=== PATIENT | female | born 1935 | race Caucasian/White ===

== ENCOUNTER 2017-01-19 10:07 | Observation (INO) | payer MEDICARE, BC ==
[2017-01-19 10:41] LABS: #Eosinphils 0.1 thou/uL (0.0-0.7); #Lymphocytes 0.8 thou/uL (1.20-3.40); #Monocytes 0.3 thou/uL (0.11-0.59); #Neutrophils 3.7 thou/uL (1.40-6.50); %Basophils 0.8 % (0.0-1.0); %Eosinophils 2.4 % (0.0-10.0); %Lymphocytes 16.2 % (21.0-51.0); %Monocytes 6.8 % (0.0-10.0); Hematocrit 31.3 % (36.0-47.0); Mean Platelet Volume 7.2 fL (7.4-10.4); Red Blood Cell (RBC) Count 3.53 mill/uL (4.20-5.40)
[2017-01-19] MEDS ORDERED: Mag-Al 1200 mg/1200 mg/30 ML UDCUP ONE (10:51)
[2017-01-19] MEDS ORDERED: Lidocaine Viscous Sol 2% 15 ml UD Cup ONE (10:51)
[2017-01-19 11:06] LABS: ALT (SGPT) 14 U/L (8-55); AST (SGOT) 21 U/L (5-34); Alkaline Phosphatase 50 U/L (40-150); Anion Gap 14 mmol/L (10-20); BUN (Urea Nitrogen) 48 mg/dL (9.8-20.1); Bilirubin, Total 0.4 mg/dL (0.2-1.2); CK (CPK) 97 U/L (29-168); Calc. Creatinine Clearance 0 mL/min (70-130); Calcium 9.7 mg/dL (7.8-10.44); Carbon Dioxide 24 mmol/L (23-31); Chloride 104 mmol/L (98-107); Estimated GFR-MDRD 32; Globulin 2.7 g/dL (2.4-3.5); Lipase 38 U/L (8-78); Protein, Total 6.5 g/dL (6.0-8.3)
[2017-01-19 11:11] LABS: Troponin I Less than 0.010 ng/mL (< 0.028)
--- NOTE | 2017-01-19 12:26 | HP ---
PRIMARY CARE PHYSICIAN: Miky Rodriguez M.D. REASON FOR ADMISSION: Chest pain. HISTORY OF PRESENT ILLNESS: An 82-year-old female with a history of hypertension, dyslipidemia, hyp othyroidism, who came to emergency room for evaluation of chest pain. Patient reports that this mor kalpana around 7:30, she was having substernal chest pain which was pressure-like sensation. She was f eeling as if not in her chest. She was experiencing mild shortness of breath. She denied any assoc iated nausea, vomiting, diaphoresis. She denies any radiation of pain. When it starts, her intensi ty of pain was about 6/10 and after emergency room treatment, the patient's intensity of pain reduce d to 2/10. She denies any vomiting. She denies any unusual food ingestion. She denies any relatio n of chest pain with food, respiration or activity. She denies any fever or chills. She denies any associated cough, hemoptysis. She denies any lower extremity edema or calf tenderness. Patient's pain was gradually getting worse at home and that is why she was scared and called 911 and paramedics brought her to the emergency room for evaluation. When she came to Emergency Room, she had routine blood tests including cardiogram which was showing normal sinus rhythm with nonspecific ST-T changes. Her routine blood test was also unremarkable inc luding cardiac enzymes. At this point, we are admitting this patient in hospital for rule out acute coronary syndrome. REVIEW OF SYSTEMS: The following complete review of systems was negative, unless otherwise mentione d in the HPI or below: Constitutional: Weight loss or gain, ability to conduct usual activities. Skin: Rash, itching. Eyes: Double vision, pain. ENT/Mouth: Nose bleeding, neck stiffness, pain, tenderness. Cardiovascular: Palpitations, dyspnea on exertion, orthopnea. Respiratory: Shortness of breath, wheezing, cough, hemoptysis, fever or night sweats. Gastrointestinal: Poor appetite, abdominal pain, heartburn, nausea, vomiting, constipation, or diar juan. Genitourinary: Urgency, frequency, dysuria, nocturia. Musculoskeletal: Pain, swelling. Neurologic/Psychiatric: Anxiety, depression. Allergy/Immunologic: Skin rash, bleeding tendency. Please see my HPI for pertinent positive and negative. All other review of systems reviewed and neg ative except as mentioned in the HPI. PAST MEDICAL HISTORY: History of breast cancer, hypertension, dyslipidemia, hypothyroidism, chronic kidney disease stage 3, and gastroesophageal reflux disease. PAST SURGICAL HISTORY: Left breast mastectomy. PAST PSYCHIATRIC HISTORY: Anxiety and depression. SOCIAL HISTORY: Patient lives by herself at home. No history of tobacco, alcohol or illicit drug a buse. She is an ex-smoker and quit smoking more than 10 years ago. FAMILY HISTORY: Patient's mother had coronary artery disease as well as she required CABG, daryn merida runs among several family members. No family history of cancer or stroke. ALLERGIES: AUGMENTIN. CURRENT HOME MEDICATIONS: The patient does not have any medication with her at this point, so unabl e to review, but patient was on following medication and per patient, there is no change happened si nce previous hospitalization, the patient is on following medications: Aspirin 81 mg p.o. daily, Co reg 6.25 mg p.o. b.i.d., vitamin D3 2000 units p.o. daily, Synthroid 100 mcg p.o. daily, Procardia-X L 30 mg p.o. b.i.d., Crestor 20 mg p.o. daily, Zoloft 200 mg p.o. daily, Aldactone 25 mg p.o. daily, coenzyme Q10 one tablet daily, valsartan 80 mg p.o. daily, and vitamin E 1000 units p.o. daily. EMERGENCY ROOM COURSE: Patient is given GI cocktail and nitro patch. PHYSICAL EXAMINATION: VITAL SIGNS: On arrival, blood pressure 110/70, pulse 81, respiratory rate 18, temperature 97.7, sa turation 97% on room air, weight 56.7 kilograms. GENERAL: Patient is currently alert, awake, no obvious acute distress. HEAD: Normocephalic, atraumatic. EYES: Pupils round, reactive to light. Extraocular muscle intact. ENT: Oropharynx within normal limits. Moist mucous membranes. No oral lesions. No pharyngeal ector thema, no exudates. NECK: Supple. Range of motion is normal. No meningeal signs of irritation. LUNGS: Clear to auscultation without any rhonchi or rales. CARDIOVASCULAR: S1, S2 regular without any significant murmur. Chest wall examination, patient wilburn s have mild substernal reproducible pain over the sternum. ABDOMEN: Soft, bowel sounds present, nontender, nondistended. No organomegaly, no mass, no suprapu bic tenderness. BACK: Examination unremarkable, no CVA tenderness. EXTREMITIES: Upper extremity passive movements of all joints are normal. Lower extremity, no edema . No calf tenderness. Good peripheral pulsation. SKIN: No skin rash. HEMATOLOGICAL SYSTEM: No lymphadenopathy. PSYCHIATRIC: Normal affect. NEUROLOGIC: Nonfocal examination. IMAGIN. EKG based on my review reveals normal sinus rhythm, nonspecific ST-T changes. 2. CBC: WBC 5.0, hemoglobin 10.3, and platelets 137. 3. BMP: Sodium 137, potassium 4.7, chloride 104, carbon dioxide 24, anion gap 14, BUN 48, creatini ne 1.55, glucose 105, calcium 9.7. 4. LFT: AST 21, ALT 14, alkaline phosphatase 50, albumin 3.8, lipase 38. CK 97, CK-MB 3.3, tropon in I less than 0.010. ASSESSMENT AND PLAN/IMPRESSION: 1. Acute chest pain. Patient's chest pain description is atypical at this point given substernal l ocation, concerning for gastroesophageal reflux disease. Patient also has some reproducibility over sternal pressure. Her some description is also concerning for coronary artery disease. At this po int, for benefit of doubt, this patient will require observation to telemetry floor. We will do ser ial cardiac enzymes. We will treat her symptoms with Protonix and Maalox while in hospital. We debby l also consider doing Cardiolite stress test for diagnostic reason. Meanwhile, we will continue wit h aspirin 325 mg p.o. daily, nitro patch q.8 hourly. We will check lipid profile for risk stratific ation, we will monitor on telemetry floor. If her cardiac enzymes remain negative, then we will do a stress test tomorrow. If her cardiac enzymes are abnormal, then we will consider Cardiology evalu ation. 2. Hypertension. Currently, blood pressure is well controlled. We will resume patient's home medi cation while in hospital. At this point, the patient did not bring her home medication, so unable t o verify, but once she gives us her home medication list, then we will start her on antihypertensive medication. 3. Hypothyroidism. Similarly, once we verify her dose of Synthroid, then we will start home medica tion while in hospital. 4. Anxiety and depression. We will continue Zoloft as per home dosage. 5. Dyslipidemia. We will check lipid profile tomorrow and after verifying dose of Crestor, we will resume Crestor while in hospital. 6. Chronic kidney disease stage 3. We will monitor renal function. 7. Anemia, normocytic, normochromic. Patient will benefit from multivitamin therapy upon discharge . 8. Deep venous thrombosis prophylaxis not needed because we are expecting discharge in 24 hours. 9. Gastrointestinal prophylaxis, Protonix 40 mg p.o. daily. CODE STATUS: The patient is FULL CODE. Patient does not have any surrogate decision maker. Dispos ition plan based on clinical course, likely within 24 hours. Her chest x-ray was unremarkable.
--- NOTE | 2017-01-19 12:29 | RAD ---
RADIOGRAPH CHEST 1 VIEW: Date: 01/19/17 HISTORY: 82 year old female with chest pain FINDINGS: The thoracic aorta is tortuous and ectatic. There is no evidence of air space density, pneumothorax , or pulmonary edema. The lateral costophrenic angles are sharp. There is a 5 cm density overlappin g the medial aspect of the left cardiac shadow. IMPRESSION: 1. No acute pulmonary findings. 2. Ectasia of thoracic aorta. 3. Left retrocardiac mass, probably a moderate sized hiatal hernia. shayla pulido POS: [facility]
[2017-01-19] MEDS ORDERED: Calcium Carbonate 500 MG ChewTAB PO PRN (13:26)
[2017-01-19] MEDS ORDERED: HYDROcodone/Acetaminophen 5/325 mg Tablet PO PRN (13:26)
[2017-01-19] MEDS ORDERED: Loratadine 10 MG TAB PO PRN (13:26)
[2017-01-19] MEDS ORDERED: Ondansetron ODT 4 MG TAB PO PRN (13:26)
[2017-01-19] MEDS ORDERED: Mag-Al 1200 mg/1200 mg/30 ML UDCUP PO PRN (13:26)
[2017-01-19] MEDS ORDERED: Zolpidem Tartrate 5 MG TAB PO PRN (13:26)
[2017-01-19] MEDS ORDERED: Milk Of Magnesia 30 ML UDCUP PO PRN (13:26)
[2017-01-19] MEDS ORDERED: Ondansetron HCl/PF 4 MG/2 ML Vial IVP PRN (13:26)
[2017-01-19] MEDS ORDERED: Sodium Chloride 0.65% Nasal 44 ML BOT EA NARE PRN (13:26)
[2017-01-19] MEDS ORDERED: Senokot 8.6 MG TAB PO PRN (13:26)
[2017-01-19] MEDS ORDERED: Acetaminophen 325 MG TAB PO PRN (13:26)
[2017-01-19] MEDS ORDERED: Diabetic Tussin 200 MG/10 ML UDCUP PO PRN (13:26)
[2017-01-19] MEDS ORDERED: Loperamide HCl 2 MG CAP PO PRN (13:26)
[2017-01-19] MEDS ORDERED: Nitroglycerin 0.4 MG TAB (25 Tab Bottle) SL PRN (13:26)
[2017-01-19 14:01] VITALS: BMI 21.9
[2017-01-19 14:14] LABS: Troponin I Less than 0.010 ng/mL (< 0.028)
[2017-01-19] MEDS: Nitroglycerin 2% Ointment 1 INCH/1 GM Packet TOP SCH ×2 (15:27→22:07)
[2017-01-19] MEDS ORDERED: clonazePAM 0.5 MG TAB PO PRN (16:15)
[2017-01-19 17:01] LABS: Troponin I 0.013 ng/mL (< 0.028)
[2017-01-19] MEDS: Carvedilol 6.25 MG TAB PO SCH (20:12)
[2017-01-19] MEDS ORDERED: FLUOCINOLONE ACETONIDE OIL L EAR SCH (21:00)
[2017-01-20] MEDS ORDERED: Levothyroxine Sodium 100 MCG TAB PO SCH (06:00)
[2017-01-20] MEDS: Nitroglycerin 2% Ointment 1 INCH/1 GM Packet TOP SCH (06:03)
[2017-01-20] MEDS ORDERED: Spironolactone 25 MG TAB PO SCH (08:00)
[2017-01-20] MEDS ORDERED: NIFEdipine XL 60 MG TAB PO SCH (09:00)
[2017-01-20] MEDS ORDERED: Ubidecarenone 50 MG CAP PO SCH (09:00)
[2017-01-20] MEDS ORDERED: Aspirin 325 MG TAB PO SCH (09:00)
[2017-01-20] MEDS ORDERED: Valsartan 80 MG TAB PO SCH (09:00)
[2017-01-20] MEDS ORDERED: ADENOSINE 60 MG/20 ML VIAL ONE (12:00)
[2017-01-20 12:17] VITALS: BP 187/91; TEMP 98.1
[2017-01-20] MEDS: Carvedilol 6.25 MG TAB PO SCH (12:42)
--- NOTE | 2017-01-20 14:35 | NM ---
NUCLEAR MEDICINE CARDIAC MYOCARDIAL PERFUSION SPECT EJECTION FRACTION STUDY WALL MOTION CINE: HISTORY: 82-year-old female with chest pain, hypertension, dyslipidemia, and family history of coronary arter y disease. TECHNIQUE: Number of days: 1 Rest study: Tc99m sestamibi (Cardiolite) dose: 9.4 mCi Pharmacologic stress: adenosine dose: 73.4 mg Stress study: Tc99m sestamibi (Cardiolite) dose: 29.0 mCi FINDINGS: CARDIAC (MYOCARDIAL PERFUSION) SPECT The evaluation of the inferior wall is limited due to adjacent bowel activity on the stress images. There is no reversible defect elsewhere. EJECTION FRACTION STUDY EF = 53% WALL MOTION CINE Normal. IMPRESSION: 1. Limited evaluation of inferior wall. 2. No evidence of reversible ischemia. DAGOBERTO Nesbitt POS: [facility]
--- NOTE | 2017-01-20 15:05 | DIS ---
DATE OF ADMISSION: 01/19/2017 DATE OF DISCHARGE: 01/20/2017 PRIMARY CARE PHYSICIAN: Dr. Mkiy Rodriguez. DISCHARGE DISPOSITION: Home. PRIMARY DISCHARGE DIAGNOSIS: Chest pain, ruled out acute coronary syndrome. SECONDARY DISCHARGE DIAGNOSES: Anxiety, depression, chronic kidney disease stage 3, dyslipidemia, h ypertension, hypothyroidism. PRIMARY PROCEDURE/OPERATION: None. RADIOLOGICAL INVESTIGATION: Chest x-ray was normal. Stress test came back negative. No reversible ischemia. SIGNIFICANT LABORATORY DATA: WBC 5.0, hemoglobin 10.3, platelets 137. Sodium 137, potassium 4.7, B UN 48, creatinine 1.55, calcium 9.7. LFTs normal. Cardiac enzymes negative x3. Lipase 38, LDL 122 . Cholesterol 143, triglycerides 199 and HDL 48. DISCHARGE MEDICATIONS: The patient will continue all her previous medications: Aspirin 81 mg p.o. daily, Coreg 6.25 mg p.o. b.i.d., vitamin D3 2000 units p.o. daily, [place] 7.5 one or two tablets q.4 hourly p.r.n., Synthroid 100 mcg p.o. daily, Procardia ER 60 mg p.o. b.i.d., Crestor 20 mg p.o. viviane ly, Zoloft 200 mg p.o. daily, Aldactone 25 mg p.o. daily, Coenzyme Q10 200 mg p.o. daily, valsartan 160 mg p.o. daily, vitamin E 1000 units p.o. daily, clonazepam 0.125 mg p.o. t.i.d. CONTRAINDICATIONS: None. CODE STATUS: FULL CODE. INPATIENT CONSULTANTS: None. ALLERGIES: AMOXICILLIN and AUGMENTIN. TEST RESULTS PENDING ON DISCHARGE: None. DISCHARGE PLAN: Post hospital, the patient will follow up with primary care physician in 1 or 2 [facility]. HOSPITAL COURSE: An 82-year-old female who was admitted by me yesterday on 01/19/2017. Patient chito chen to the emergency room with a complaint of chest pain. Please see my H\T\P for further details. T his patient's chest pain description was atypical. She came to the ER and we did routine workup, he r EKG was normal sinus rhythm with nonspecific ST-T changes. Her chest x-ray was normal. We kept t his patient in the hospital and did serial cardiac enzyme that came back negative. We will monitor on telemetry floor and her telemetry remained unremarkable. She was asymptomatic while in hospital for chest pain. For benefit of doubt, we did a pharmacological stress test and that came back negat maria l. This patient is currently hemodynamically stable and asymptomatic. The patient is seen and examined at bedside today. PHYSICAL EXAMINATION: VITAL SIGNS: Currently, temperature 98.1, pulse 73, respiratory rate 16, saturation 97%, blood pres sure 187/91. Weight 132 pounds. GENERAL: The patient is currently alert, awake, no acute distress. HEAD: Normocephalic, atraumatic. LUNGS: Clear to auscultation without any rhonchi or rales. CARDIAC: S1, S2 regular without any murmur. ABDOMEN: Soft and benign. EXTREMITIES: No edema. NEUROLOGIC: Nonfocal examination. The patient is medically stable for discharge and she will resume all her previous medication and sh e will follow up with primary care physician in 1 week. All test results discussed with the patient in detail.
== END 2017-01-20 14:43 | disposition home or self-care (01) ==
LOC: ERS 10:07 → 2SW 12:09
PROVIDERS: ADMIT Internal Medicine; ATTEND Internal Medicine
DX: R07.89 Other chest pain (principal); F32.9 Major depressive disorder, single episode, unspecified; F41.9 Anxiety disorder, unspecified; I12.9 Hypertensive chronic kidney disease with stage 1 through stage 4 chronic kidney disease, or unspecified chronic kidney disease; N18.3 Chronic kidney disease, stage 3 (moderate); E78.5 Hyperlipidemia, unspecified; E03.9 Hypothyroidism, unspecified; K21.9 Gastro-esophageal reflux disease without esophagitis; Z88.0 Allergy status to penicillin; Z88.8 Allergy status to other drugs, medicaments and biological substances; Z79.82 Long term (current) use of aspirin; Z79.899 Other long term (current) drug therapy; Z90.12 Acquired absence of left breast and nipple; Z87.891 Personal history of nicotine dependence; Z82.49 Family history of ischemic heart disease and other diseases of the circulatory system
CPT/HCPCS: 71010; 78452; 80053; 80061; 82550; 82553; 83690; 84484 ×2; 85025; 93005; 93017; 94760; 99285; A9500; G0378; 36415; A4216; J0153

== ENCOUNTER 2017-03-07 12:35 | Outpatient (CLI) | payer MEDICARE, BC ==
--- NOTE | 2017-03-07 15:08 | RAD ---
RIGHT TOES THREE VIEWS: History: Injury. FINDINGS: Post-operative changes are seen at the base of the first metatarsal with screws present at this level , one crossing the base of the first and second metatarsals, a second more obliquely oriented screw t hrough the first metatarsal and middle cuneiform. The bones are demineralized. There is an acute appearing intraarticular fracture involving the proxim al phalanx of the great toe. Fracture line extends into the mid portion of the proximal phalanx as a nondisplaced fracture. Old third metatarsal fracture is noted. IMPRESSION: Nondisplaced intraarticular fracture of the base of the proximal phalanx of the great toe. POS: [facility]
== END 2017-03-07 12:36 | disposition home or self-care (01) ==
LOC: SCSRAD 12:35
PROVIDERS: ATTEND Family Medicine
DX: M79.674 Pain in right toe(s) (principal); S92.414A Nondisplaced fracture of proximal phalanx of right great toe, initial encounter for closed fracture

== ENCOUNTER 2018-04-19 09:01 | Emergency (ER) | payer MEDICARE, BC ==
[2018-04-19 09:30] LABS: #Eosinphils 0.1 thou/uL (0.0-0.7); #Lymphocytes 1.2 thou/uL (1.20-3.40); #Monocytes 0.4 thou/uL (0.11-0.59); #Neutrophils 3.1 thou/uL (1.40-6.50); %Basophils 0.3 % (0.0-1.0); %Eosinophils 2.1 % (0.0-10.0); %Lymphocytes 25.7 % (21.0-51.0); %Neutrophils 63.9 % (42.0-75.0); Hemoglobin 12.5 g/dL (12.0-16.0); Mean Corpuscular Hemoglobin 29.1 pg (27.0-31.0); Mean Corpuscular Volume 85.6 fL (78.0-98.0); Mean Platelet Volume 7.4 fL (7.4-10.4); Platelet Count 152 thou/uL (130-400); RBC Distribution Width 12.7 % (11.5-14.5); Red Blood Cell (RBC) Count 4.31 mill/uL (4.20-5.40); White Blood Cell (WBC) Count 4.8 thou/uL (4.8-10.8)
[2018-04-19 09:42] LABS: ALT (SGPT) 17 U/L (8-55); AST (SGOT) 25 U/L (5-34); Albumin 4.7 g/dL (3.4-4.8); Alkaline Phosphatase 75 U/L (40-150); Anion Gap 17 mmol/L (10-20); BUN (Urea Nitrogen) 52 mg/dL (9.8-20.1); Bilirubin, Total 0.6 mg/dL (0.2-1.2); Calc. Creatinine Clearance 0 mL/min (70-130); Calcium 10.5 mg/dL (7.8-10.44); Carbon Dioxide 24 mmol/L (23-31); Chloride 103 mmol/L (98-107); Estimated GFR-MDRD 34; Globulin 2.8 g/dL (2.4-3.5); Glucose 91 mg/dL (83-110); Potassium 4.5 mmol/L (3.5-5.1); Protein, Total 7.5 g/dL (6.0-8.3); Sodium 139 mmol/L (136-145)
--- NOTE | 2018-04-19 10:25 | RAD ---
SINGLE VIEW OF THE CHEST: COMPARISON: 01/19/2017. HISTORY: Heart racing and chest pain. FINDINGS: Single view of the chest shows a normal sized cardiomediastinal silhouette. There is no evidence of c onsolidation, mass, or pleural effusion. The bones are unremarkable. IMPRESSION: No evidence of acute cardiopulmonary disease. POS: [facility]
[2018-04-19] MEDS ORDERED: Ondansetron PF 4 MG/2 ML Vial ONE (12:02)
[2018-04-19] MEDS ORDERED: Acetaminophen 500 MG TAB ONE (12:02)
--- NOTE | 2018-04-19 12:04 | CT ---
CT BRAIN WITHOUT CONTRAST: Comparison: 02-25-16 History: Woke up this morning with headache. The patient had a headache going to bed last night. Technique: Multiple contiguous axial images were obtained in a CT of the brain without contrast. FINDINGS: There are scattered hypodensities in the subcortical and periventricular white matter, likely seconda ry to small vessel ischemic disease. No large confluent infarcts are seen. There is no evidence of hy drocephalus, intracranial hemorrhage, or extraaxial fluid collections. The calvarium and overlying soft tissues are unremarkable. The visualized paranasal sinuses and masto id air cells are well aerated. IMPRESSION: Small vessel ischemic disease without acute intracranial abnormality. POS: [facility]
[2018-04-19 12:39] LABS: Bilirubin Negative (Negative); Blood, Urine Negative (Negative); Clarity CLEAR (Clear); Glucose, Urine (Dipstick) Negative (Negative); Leukocyte Negative (Negative); Nitrite Negative (Negative); Protein, Urine (Dipstick) Negative (Neg-Trace); Specific Gravity, Urine 1.012 (1.002-1.036); Urobilinogen 0.2 mg/dL (0.2-1.0)
== END 2018-04-19 13:13 | disposition home or self-care (01) ==
LOC: ERS 09:01
DX: I10 Essential (primary) hypertension (principal); E86.0 Dehydration; R51 Headache; E78.5 Hyperlipidemia, unspecified; F41.9 Anxiety disorder, unspecified; F32.9 Major depressive disorder, single episode, unspecified; Z87.891 Personal history of nicotine dependence
CPT/HCPCS: 36415; 70450; 71045; 80053; 81003; 84484; 85025; 93005; 96361; 96374; J2405

== ENCOUNTER 2018-05-08 08:22 | Outpatient (CLI) | payer MEDICARE, BC ==
--- NOTE | 2018-05-08 10:10 | CT ---
CT ABDOMEN AND PELVIS PERFORMED WITH CONTRAST ENHANCEMENT: HISTORY: The patient has a history of weight loss, abdominal pain, a history of left breast cancer, and a prev ious mastectomy. COMPARISON: Exam from 08/04/2016. FINDINGS: ABDOMEN: The lung bases are clear of infiltrates. No pulmonary nodules. A large hiatal hernia is s een. A hypodense lesion within the right lobe of the liver is most compatible with a cyst, stable. The sp mora is normal in appearance. The pancreas region is unremarkable, as is the gallbladder. The right and left adrenal glands are normal in appearance. The right and left kidneys are within no rmal limits in size. There are numerous renal cysts present. The largest cyst is a large lower pole right renal cyst. It measures approximately 10 cm in size, slightly increased since the previous ex amination, when it measured closer to 9 cm. There is no significant periaortic or mesenteric adenopa thy. No bowel wall findings. PELVIS: There is a moderate amount of stool in the rectum region. There is no pelvic lymphadenopath y or mass. The appendix appears to have been removed. Review of the osseous structures show arthritic changes in the spine and scoliosis. IMPRESSION: 1. Bilateral renal cysts with a large lower pole right renal cyst. 2. Hepatic cyst, stable. 3. Large hiatal hernia. POS: [facility]
[2018-05-08] MEDS ORDERED: ISOVUE-370 76%-LOCM 1 ML ONE (11:30)
== END 2018-05-08 08:23 | disposition home or self-care (01) ==
LOC: BICCT 08:22
PROVIDERS: ATTEND Family Medicine
DX: R63.4 Abnormal weight loss (principal); N28.1 Cyst of kidney, acquired; K76.89 Other specified diseases of liver; K44.9 Diaphragmatic hernia without obstruction or gangrene
CPT/HCPCS: 74177

== ENCOUNTER 2018-05-21 13:13 | Outpatient (CLI) | payer MEDICARE, BC ==
--- NOTE | 2018-05-21 15:34 | CT ---
CT BRAIN WITHOUT CONTRAST: HISTORY: Headache. COMPARISON: 04/19/2018 FINDINGS: Changes of chronic small vessel ischemic disease are again seen. The ventricular size is stable, and the basilar cisterns are patent. No evidence of infarct, hemorrhage, midline shift, or abnormal ext raaxial fluid collections is seen. The bony calvarium is intact. The visualized paranasal sinuses a nd mastoid air cells are well aerated. IMPRESSION: Stable examination. No CT evidence of acute intracranial process. POS: [facility]
== END 2018-05-21 13:14 | disposition home or self-care (01) ==
LOC: BICCT 13:13
PROVIDERS: ATTEND Family Medicine
DX: R51 Headache (principal)
CPT/HCPCS: 70450

== ENCOUNTER 2018-09-03 11:27 | Outpatient (CLI) | payer MEDICARE, BC ==
--- NOTE | 2018-09-03 12:01 | RAD ---
XR Chest Pa Lat STANDARD HISTORY: Weight loss COMPARISON: 08/18/2017 FINDINGS: The heart size is normal. The aorta is tortuous The lungs are well expanded without focal a reas of consolidation, pneumothorax or pleural effusions. A hiatal hernia is present. There is scoliosis of the spine IMPRESSION: No radiographic evidence of acute cardiopulmonary process.
== END 2018-09-03 11:28 | disposition home or self-care (01) ==
LOC: BICRAD 11:27
PROVIDERS: ATTEND Family Medicine
DX: R63.4 Abnormal weight loss (principal)
CPT/HCPCS: 36415; 71046; 80053; 82607; 82728; 83540; 83550; 84439; 84443; 84481; 85025; 85652; 86140

== ENCOUNTER 2018-10-01 08:26 | Emergency (ER) | payer MEDICARE, BC ==
[2018-10-01 09:28] LABS: #Eosinphils 0.1 thou/uL (0.0-0.7); #Lymphocytes 1.3 thou/uL (1.20-3.40); #Monocytes 0.4 thou/uL (0.11-0.59); #Neutrophils 3.4 thou/uL (1.40-6.50); %Basophils 0.4 % (0.0-1.0); %Eosinophils 2.2 % (0.0-10.0); %Lymphocytes 24.2 % (21.0-51.0); %Monocytes 8.1 % (0.0-10.0); %Neutrophils 65.1 % (42.0-75.0); Hemoglobin 10.4 g/dL (12.0-16.0); Mean Corpuscular HGB CONC 33.4 g/dL (32.0-36.0); Mean Corpuscular Hemoglobin 28.4 pg (27.0-31.0); Mean Corpuscular Volume 85.1 fL (78.0-98.0); Mean Platelet Volume 7.4 fL (7.4-10.4); Platelet Count 126 thou/uL (130-400); RBC Distribution Width 13.5 % (11.5-14.5); Red Blood Cell (RBC) Count 3.67 mill/uL (4.20-5.40); White Blood Cell (WBC) Count 5.2 thou/uL (4.8-10.8)
[2018-10-01 09:49] LABS: ALT (SGPT) 14 U/L (8-55); AST (SGOT) 20 U/L (5-34); Albumin 4.4 g/dL (3.4-4.8); Alkaline Phosphatase 59 U/L (40-150); Anion Gap 11 mmol/L (10-20); BUN (Urea Nitrogen) 55 mg/dL (9.8-20.1); Bilirubin, Total 0.3 mg/dL (0.2-1.2); Calc. Creatinine Clearance 0 mL/min (70-130); Carbon Dioxide 28 mmol/L (23-31); Chloride 104 mmol/L (98-107); Estimated GFR-MDRD 28; Globulin 2.3 g/dL (2.4-3.5); Potassium 4.4 mmol/L (3.5-5.1); Protein, Total 6.7 g/dL (6.0-8.3); Sodium 139 mmol/L (136-145)
[2018-10-01 09:54] LABS: Glucose 57 mg/dL (83-110)
--- NOTE | 2018-10-01 09:59 | RAD ---
XR Chest 1 View Portable History: Dizziness Comparison: Chest radiograph 2018 Findings: Moderate sliding hiatal hernia. Heart size upper limits of normal. No confluent airspace consolidation, pneumothorax, or effusion. Right axillary vascular calcification s. Old right anterior rib fractures. Impression: Chronic findings. No acute intrathoracic abnormality.
[2018-10-01] MEDS ORDERED: cloNIDine 0.1 MG TAB ONE (10:33)
--- NOTE | 2018-10-05 15:07 | EKG ---
Test Reason : HYPERTENSION Blood Pressure : / mmHG Vent. Rate : 076 BPM Atrial Rate : 076 BPM P-R Int : 196 ms QRS Dur : 092 ms QT Int : 404 ms P-R-T Axes : 073 -06 068 degrees QTc Int : 454 ms Normal sinus rhythm Moderate voltage criteria for LVH, may be normal variant Borderline ECG Confirmed by MEÑO BARKER ([id number]), graphics editor CARLOS CAVAZOS ([id number]) on 10/05/2018 3:07:39 PM Referred By: Confirmed By:MEÑO BARKER
== END 2018-10-01 12:06 | disposition home or self-care (01) ==
LOC: ERS 08:26
DX: I10 Essential (primary) hypertension (principal); E11.649 Type 2 diabetes mellitus with hypoglycemia without coma; F41.9 Anxiety disorder, unspecified; F32.9 Major depressive disorder, single episode, unspecified; E78.5 Hyperlipidemia, unspecified; Z87.891 Personal history of nicotine dependence; Z79.899 Other long term (current) drug therapy; Z79.82 Long term (current) use of aspirin
CPT/HCPCS: 36415; 71045; 80053; 83880; 84484; 85025; 93005

== ENCOUNTER 2018-12-25 22:40 | Observation (INO) | payer MEDICARE, BC ==
--- NOTE | 2018-12-25 23:18 | RAD ---
Chest one view HISTORY: Chest pain. COMPARISON: 10/01/2018. FINDINGS: Cardiac silhouette is magnified by projection. Lungs remain hyperinflated. Mediastinum is m idline with aortic calcified patient. No lobar consolidation or evidence of pneumothorax. Hiatal hernia is again demonstrated. Hemostasis clips over the left axilla. IMPRESSION: Atherosclerosis. Chronic-type findings are stable. No active cardiopulmonary abnormalities are demonstrated.
[2018-12-25 23:42] LABS: #Eosinphils 0.1 thou/uL (0.0-0.7); #Lymphocytes 0.9 thou/uL (1.20-3.40); #Monocytes 0.3 thou/uL (0.11-0.59); #Neutrophils 3.8 thou/uL (1.40-6.50); %Basophils 0.7 % (0.0-1.0); %Eosinophils 2.5 % (0.0-10.0); %Lymphocytes 16.8 % (21.0-51.0); %Monocytes 5.3 % (0.0-10.0); %Neutrophils 74.7 % (42.0-75.0); Hemoglobin 9.3 g/dL (12.0-16.0); Mean Corpuscular HGB CONC 34.1 g/dL (32.0-36.0); Mean Corpuscular Hemoglobin 28.2 pg (27.0-31.0); Mean Corpuscular Volume 82.6 fL (78.0-98.0); Mean Platelet Volume 7.3 fL (7.4-10.4); Platelet Count 115 thou/uL (130-400); Platelet Morphology Comment Appears Decreased; RBC Distribution Width 12.4 % (11.5-14.5); RBC Morphology Normal; Red Blood Cell (RBC) Count 3.32 mill/uL (4.20-5.40); White Blood Cell (WBC) Count 5.1 thou/uL (4.8-10.8)
[2018-12-25 23:43] LABS: ALT (SGPT) 16 U/L (8-55); AST (SGOT) 21 U/L (5-34); Albumin 4.3 g/dL (3.4-4.8); Alkaline Phosphatase 64 U/L (40-150); Anion Gap 14 mmol/L (10-20); BUN (Urea Nitrogen) 41 mg/dL (9.8-20.1); Bilirubin, Total 0.3 mg/dL (0.2-1.2); CK (CPK) 57 U/L (29-168); Calc. Creatinine Clearance 0 mL/min (70-130); Calcium 9.8 mg/dL (7.8-10.44); Carbon Dioxide 24 mmol/L (23-31); Chloride 104 mmol/L (98-107); Estimated GFR-MDRD 37; Globulin 2.2 g/dL (2.4-3.5); Glucose 86 mg/dL (83-110); Potassium 3.7 mmol/L (3.5-5.1); Protein, Total 6.5 g/dL (6.0-8.3); Sodium 138 mmol/L (136-145)
[2018-12-26] MEDS ORDERED: Nitroglycerin 2% Ointment 1 INCH/1 GM Packet ONE (00:26)
[2018-12-26] MEDS ORDERED: Aspirin Chewable 81 MG TAB ONE (00:26)
[2018-12-26] MEDS ORDERED: Morphine 4 MG/ML VIAL ONE (02:49)
[2018-12-26] MEDS ORDERED: Bisacodyl 5 MG TAB PO PRN (07:34)
[2018-12-26] MEDS ORDERED: Ondansetron ODT 4 MG TAB PO PRN (07:34)
[2018-12-26] MEDS ORDERED: Ondansetron PF 4 MG/2 ML Vial IVP PRN (07:34)
[2018-12-26] MEDS ORDERED: Senokot S 8.6-50 MG TAB PO PRN (07:34)
[2018-12-26] MEDS ORDERED: Acetaminophen 325 MG TAB PO PRN (07:34)
[2018-12-26] MEDS ORDERED: HYDROcodone/Acetaminophen 5/325 mg Tablet PO PRN (07:34)
[2018-12-26] MEDS ORDERED: diphenhydrAMINE 25 MG CAP PO PRN (07:37)
[2018-12-26] MEDS ORDERED: hydrALAZINE 20 MG/ML VIAL SLOW IVP PRN ×2 (07:37→10:49)
[2018-12-26] MEDS ORDERED: Docusate 100 MG CAP PO PRN (07:37)
[2018-12-26] MEDS ORDERED: Morphine 2 MG/ML SYRINGE SLOW IVP PRN (07:41)
[2018-12-26 08:27] LABS: Troponin I 0.013 ng/mL (< 0.028)
[2018-12-26] MEDS ORDERED: hydrALAZINE 20 MG/ML VIAL ONE (10:42)
[2018-12-26] MEDS ORDERED: clonazePAM 0.5 MG TAB PO PRN (10:49)
[2018-12-26] MEDS ORDERED: Lorazepam 2 MG/ML VIAL SLOW IVP PRN (12:38)
[2018-12-26] MEDS ORDERED: Lorazepam 2 MG/ML VIAL ONE (12:40)
--- NOTE | 2018-12-26 14:33 | PDOC.HHP ---
Hospitalist HPI - History of Present Illness Chest pain and shortness of breath History of Present Illness: 83 year old female with PMHx of HTN, HLD, anxiety, and COPD presents with worsening chest pain and shortness of breath. Patient developed acute onset of chest pain for the past day. Mid sternal pain that does not radiate. Patient with associated shortness of breath. Patient feels like her heart is racing out her chest currently, while I was in the room with her her rate was in the 80's and regular. Patient denies prior NC, CVA, afib, or PE. Patient with negative stress test greater than 1 year ago. Negative cardiac enzymes on admission, EKG without significant ST-T segment abnormalities suggestive of no STEMI. Patient does seem very anxious and normally takes medications for anxiety. Patient admitted to medical unit with telemetry for further evaluation and treatment. Hospitalist ROS - Review of Systems All other systems reviewed; all pertinent +/- noted in HPI/Subj Hospitalist History - Past Medical History Source: patient Cardiac: reports: HTN, Hyperlipidemia. denies: AFIB, CAD, CHF, NC Pulmonary: reports: COPD, hypertension. denies: CVA/TIA/stroke, congestive heart failure [employer]: denies: Seizure, TIA Gastrointestinal: reports: Constipation. denies: Inflam bowel disease Heme/Onc: denies: Cancer Hepatobiliary: denies: Hep A/B/C Psych: denies: Psychosis, Schizophrenia Infectious Disease: denies: HIV Renal/: denies: Chronic renal failure, UTI Endocrine: denies: Diabetes - Past Surgical History Past Surgical History: reports: Appendectomy - Family History Family History: reports: hyperlipidemia, hypertension - Social History Smoking Status: Former smoker Tobacco Type: cigarettes Alcohol: reports: Occassional Drugs: reports: none Living Situation: Alone Other Social History: Patient states she is a full code - Exam General Appearance: awake alert (Very anxious) Eye: PERRL, anicteric sclera Eye - other findings: EOMI ENT: no oropharyngeal lesions, moist mucosa Neck: supple, symmetric, no lymphadenopathy Heart: no murmur, no gallops, no rubs Heart - other findings: S1 and S2 present Respiratory: CTAB, no wheezes, no rales, no ronchi, tachypneic Gastrointestinal: soft, non-tender, non-distended, no palpable masses, no guarding, no rigidity Skin: no lesions, no rashes Neurological: CN's grossly intact, no focal deficits Musculoskeletal: normal tone, no muscle wasting Psychiatric: normal affect, oriented to person, oriented to place Psychiatric - other findings: Very anxious Hospitalist Results - Labs Result Diagrams: 12/25/18 23:09 12/25/18 23:09 Lab results: WBC 5.1 thou/uL (4.8-10.8) 12/25/18 23:09 Hgb 9.3 g/dL (12.0-16.0) L 12/25/18 23:09 Hct 27.4 % (36.0-47.0) L 12/25/18 23:09 MCV 82.6 fL (78.0-98.0) 12/25/18 23:09 Plt Count 115 thou/uL (130-400) L 12/25/18 23:09 Neutrophils % 74.7 % (42.0-75.0) 12/25/18 23:09 Sodium 138 mmol/L (136-145) 12/25/18 23:09 Potassium 3.7 mmol/L (3.5-5.1) 12/25/18 23:09 Chloride 104 mmol/L (98-107) 12/25/18 23:09 Carbon Dioxide 24 mmol/L (23-31) 12/25/18 23:09 BUN 41 mg/dL (9.8-20.1) H 12/25/18 23:09 Creatinine 1.36 mg/dL (0.6-1.1) H 12/25/18 23:09 Glucose 86 mg/dL (83-110) 12/25/18 23:09 Calcium 9.8 mg/dL (7.8-10.44) 12/25/18 23:09 Total Bilirubin 0.3 mg/dL (0.2-1.2) 12/25/18 23:09 AST 21 U/L (5-34) 12/25/18 23:09 ALT 16 U/L (8-55) 12/25/18 23:09 Alkaline Phosphatase 64 U/L (40-150) 12/25/18 23:09 Creatine Kinase 57 U/L (29-168) 12/25/18 23:09 Troponin I 0.013 ng/mL (< 0.028) 12/26/18 07:36 B-Natriuretic Peptide 130.8 pg/mL (0-100) H 12/25/18 23:09 Serum Total Protein 6.5 g/dL (6.0-8.3) 12/25/18 23:09 Albumin 4.3 g/dL (3.4-4.8) 12/25/18 23:09 - Radiology Interpretation Chest x-ray Status: image reviewed by ok Hospitalist H&P A/P - Problem (1) Chest pain Code(s): R07.9 - CHEST PAIN, UNSPECIFIED Status: Acute (2) Anxiety and depression Code(s): F41.8 - OTHER SPECIFIED ANXIETY DISORDERS Status: Chronic (3) CKD (chronic kidney disease) stage 3, GFR 30-59 ml/min Code(s): N18.3 - CHRONIC KIDNEY DISEASE, STAGE 3 (MODERATE) Status: Chronic (4) Dyslipidemia Code(s): E78.5 - HYPERLIPIDEMIA, UNSPECIFIED Status: Chronic (5) Hypertension Code(s): I10 - ESSENTIAL (PRIMARY) HYPERTENSION Status: Chronic (6) Hypothyroidism Code(s): E03.9 - HYPOTHYROIDISM, UNSPECIFIED Status: Chronic - Plan Plan: Plan: Admit to medical unit with telemetry NM stress test to rule out reversible ischemia Continuous telemetry to monitor for arrhythmia Morphine, oxygen, nitrates, ASA Pending above work up consider cardiology consult Malignant HTN on admission, restart home meds Hydralazine IV PRN SBP >180 Anxiolytics, panic attack is definitely contributing to patients symptoms Replace electrolytes as needed GI and DVT PPX
[2018-12-26] MEDS: Famotidine 20 MG TAB PO SCH ×2 (16:12→20:39)
[2018-12-26] MEDS ORDERED: ADENOSINE 60 MG/20 ML VIAL ONE (17:08)
--- NOTE | 2018-12-26 17:12 | NM ---
CARDIAC SPECT: 12/26/18 HISTORY: 83-year-old female with chest pain, hypertension, and dyslipidemia. TECHNIQUE: A myocardial perfusion scan is performed using the single isotope one day protocol with technetium 99 m-Sestamibi. 9 millicuries injected intravenously for rest followed by 30 millicuries for the stress study. Pharmacologic test with Adenosine was monitored and interpreted by China Lopez NP. FINDINGS: There is a small fixed defect in the inferolateral wall. The left ventricular size is greater on stre ss compared to rest with a TID ratio of 1.39. Gated SPECT LVEF: 36%. Wall motion exam: Global hypokinesis. IMPRESSION: 1. Small inferolateral wall scar. 2. TID ratio is 1.39. Clinical correlation is recommended. POS: [facility]
[2018-12-26] MEDS: NIFEdipine XL 60 MG TAB PO SCH (20:39)
[2018-12-26] MEDS: Carvedilol 3.125 MG TAB PO SCH (20:39)
[2018-12-26] MEDS ORDERED: Rosuvastatin 20 MG TAB PO SCH (21:00)
[2018-12-27] MEDS ORDERED: Levothyroxine Sodium 100 MCG TAB PO SCH (06:00)
[2018-12-27 06:36] LABS: #Eosinphils 0.2 thou/uL (0.0-0.7); #Lymphocytes 0.7 thou/uL (1.20-3.40); #Monocytes 0.4 thou/uL (0.11-0.59); #Neutrophils 3.7 thou/uL (1.40-6.50); %Basophils 0.5 % (0.0-1.0); %Eosinophils 3.3 % (0.0-10.0); %Lymphocytes 14.7 % (21.0-51.0); %Monocytes 7.3 % (0.0-10.0); %Neutrophils 74.2 % (42.0-75.0); Hemoglobin 9.7 g/dL (12.0-16.0); Mean Corpuscular HGB CONC 34.1 g/dL (32.0-36.0); Mean Corpuscular Hemoglobin 28.5 pg (27.0-31.0); Mean Corpuscular Volume 83.5 fL (78.0-98.0); Mean Platelet Volume 7.4 fL (7.4-10.4); Platelet Count 123 thou/uL (130-400); RBC Distribution Width 12.6 % (11.5-14.5); Red Blood Cell (RBC) Count 3.41 mill/uL (4.20-5.40); White Blood Cell (WBC) Count 4.9 thou/uL (4.8-10.8)
[2018-12-27 07:01] LABS: Anion Gap 14 mmol/L (10-20); BUN (Urea Nitrogen) 43 mg/dL (9.8-20.1); Calc. Creatinine Clearance 21 mL/min (70-130); Calcium 9.8 mg/dL (7.8-10.44); Carbon Dioxide 23 mmol/L (23-31); Chloride 106 mmol/L (98-107); Estimated GFR-MDRD 32; Glucose 80 mg/dL (83-110); Potassium 4.4 mmol/L (3.5-5.1); Sodium 139 mmol/L (136-145)
[2018-12-27] MEDS ORDERED: Aspirin Chewable 81 MG TAB PO SCH (09:00)
[2018-12-27] MEDS ORDERED: Spironolactone 25 MG TAB PO SCH (09:00)
[2018-12-27] MEDS ORDERED: Ubidecarenone 50 MG CAP PO SCH (09:00)
[2018-12-27] MEDS ORDERED: Valsartan 80 MG TAB PO SCH (09:00)
[2018-12-27] MEDS: NIFEdipine XL 60 MG TAB PO SCH (10:41)
[2018-12-27] MEDS: Carvedilol 3.125 MG TAB PO SCH (10:42)
--- NOTE | 2018-12-27 11:21 | RAD ---
XR Hip Lt 2-3 View HISTORY: Fall, left hip pain FINDINGS: No fracture or dislocation is identified.
--- NOTE | 2018-12-27 11:22 | RAD ---
XR Hip Rt 2-3 View HISTORY: Fall, right hip pain FINDINGS: No fracture or dislocation is identified.
[2018-12-27 11:33] VITALS: TEMP 98
[2018-12-27 11:38] VITALS: BP 144/70
[2018-12-27 11:41] VITALS: BMI 16.0
[2018-12-27] MEDS ORDERED: Prevnar 13-Val Conj/PF 0.5 ML SYRINGE IM ONE (16:30)
[2018-12-27] MEDS ORDERED: Famotidine 20 MG TAB PO SCH (21:00)
--- NOTE | 2018-12-28 02:05 | DIS ---
DATE OF ADMISSION: 12/26/2018 DATE OF DISCHARGE: 12/27/2018 REASON FOR HOSPITALIZATION: Chest pain. 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 PROCEDURES PERFORMED AND TREATMENTS RENDERED: The patient underwent nuclear medicine stress test, please see full report for details, no reversible ischemia was identified. The patient was restarted on home medications with good improvement of blood pressure. CONDITION ON DISCHARGE: Stable. SPECIFIC INSTRUCTIONS FOR THE PATIENT/FAMILY: 1. The patient is to follow up with primary care physician in the next 5 to 7 days. 2. The patient is recommended to take all medications as outlined, to be re-evaluated by primary care physician. 3. The patient is recommended to keep a blood pressure log with a minimum readings of 3 times per week and take this log to her primary care physician. 4. The patient is recommended to follow up with her primary care physician on ways to avoid panic attack. DISCHARGE MEDICATIONS: Please see discharge medication reconciliation for full details, no new medications were prescribed and the patient states that she has all of her home medications at home. HOSPITAL COURSE: Ms. Morris is a very pleasant 83-year-old white female with past medical history of hypertension, depression, hypothyroidism, hyperlipidemia, and panic attacks who presented to [facility] on 12/26/2018. The patient initially was complaining of chest pain and was admitted to the medical unit with telemetry for close observation. The patient underwent nuclear medicine stress test, please see full report for details, there was no reversible ischemia identified. The patient was restarted on her home blood pressure medications as she was found to have malignant hypertension. With resuming home medications, the patient's blood pressure improved and chest pain resolved. The patient also has a past medical history of anxiety/panic attacks for which she takes short-acting anxiolytic medications. The patient was very anxious and in panic attack on admission and administration of short-acting anxiolytic medications did help control her symptoms. There was concern that the patient may be unstable on her feet and a physical therapy and occupational therapy evaluation was performed, please see full notes from PT and OT for details. The patient recommended safe for discharge home by PT and OT. The patient did also complain to me of some mild hip pain, more severe on the left, bilateral hip x-rays were performed; please see full report for details; no acute bony fracture was identified. With no acute fracture, I recommended the patient that she follow up with her primary care physician for degenerative osteoarthritis and if this continues to be a persistent problem, she may need to see Orthopedic Surgery in the outpatient clinic electively in the upcoming weeks. The patient recommended safe for discharge home. The patient is recommended to take all medications as outlined, to be re-evaluated by primary care physician. The patient recommended to follow up with primary care physician in the next 5 to 7 days. The patient recommended to return to acute care hospital immediately if signs or symptoms return, worsen, or any other new symptoms occur. Greater than 35 minutes spent coordinating care and discharge process for this patient. Job ID: [id number]
--- NOTE | 2019-01-04 14:56 | EKG ---
Test Reason : Blood Pressure : / mmHG Vent. Rate : 086 BPM Atrial Rate : 086 BPM P-R Int : 200 ms QRS Dur : 076 ms QT Int : 406 ms P-R-T Axes : 068 015 090 degrees QTc Int : 485 ms Normal sinus rhythm Possible Left atrial enlargement Nonspecific T wave abnormality Prolonged QT Abnormal ECG Confirmed by KENNY JUAN M.D. ([id number]), pictures editor CARLOS CAVAZOS ([id number]) on 01/04/2019 2:55:58 PM Referred By: Confirmed By:KENNY JUAN M.D.
== END 2018-12-27 15:25 | disposition home or self-care (01) ==
LOC: ERS 22:40 → ERHOLD 12-26 01:09 → 2NO 12-26 01:29
PROVIDERS: ADMIT Hospitalist; ATTEND Hospitalist
DX: R07.9 Chest pain, unspecified (principal); R06.02 Shortness of breath; E03.9 Hypothyroidism, unspecified; I10 Essential (primary) hypertension; E78.5 Hyperlipidemia, unspecified; F41.8 Other specified anxiety disorders; F32.9 Major depressive disorder, single episode, unspecified; F41.0 Panic disorder [episodic paroxysmal anxiety]; Z87.891 Personal history of nicotine dependence; Z88.0 Allergy status to penicillin; Z88.8 Allergy status to other drugs, medicaments and biological substances
CPT/HCPCS: 71045; 73502 ×2; 78452; 80048; 80053; 82550; 83880; 84484 ×3; 85025 ×2; 93005; 93017; 94760; 96374; 96375; 97116; 97139 ×4; 97535; 99285; A9500; G0378 ×3; 36415; J0153; J0360; J2060; J2270

== ENCOUNTER 2019-01-13 08:14 | Emergency (ER) | payer MEDICARE, BC ==
[2019-01-13 08:34] LABS: #Eosinphils 0.2 thou/uL (0.0-0.7); #Lymphocytes 1.2 thou/uL (1.20-3.40); #Monocytes 0.4 thou/uL (0.11-0.59); #Neutrophils 5.1 thou/uL (1.40-6.50); %Basophils 0.5 % (0.0-1.0); %Eosinophils 2.3 % (0.0-10.0); %Lymphocytes 16.9 % (21.0-51.0); %Monocytes 6.4 % (0.0-10.0); Mean Corpuscular Hemoglobin 28.4 pg (27.0-31.0); Mean Corpuscular Volume 81.2 fL (78.0-98.0); Mean Platelet Volume 7.5 fL (7.4-10.4); Platelet Count 138 thou/uL (130-400); RBC Distribution Width 12.8 % (11.5-14.5); Red Blood Cell (RBC) Count 3.51 mill/uL (4.20-5.40); White Blood Cell (WBC) Count 6.9 thou/uL (4.8-10.8)
--- NOTE | 2019-01-13 08:39 | RAD ---
Chest one view HISTORY: Chest pain. COMPARISON: 12/25/2018. FINDINGS: Cardiac silhouette and pulmonary vasculature are unremarkable. Mediastinum is midline with aortic calcification. Lungs remain slightly hyperinflated. Small hiatal hernia. No confluent airspace consolidation or evidence of pneumothorax. Skinfold over the right mid chest. Cardiac monito r leads overlie the chest. IMPRESSION: Atherosclerosis. Chronic-type findings are stable. No active cardiopulmonary abnormalities are demonstrated.
[2019-01-13] MEDS ORDERED: Lorazepam 2 MG/ML VIAL ONE (08:49)
[2019-01-13] MEDS ORDERED: Aspirin Chewable 81 MG TAB ONE (08:50)
[2019-01-13 09:03] LABS: ALT (SGPT) 15 U/L (8-55); AST (SGOT) 19 U/L (5-34); Albumin 4.4 g/dL (3.4-4.8); Alkaline Phosphatase 57 U/L (40-150); Anion Gap 13 mmol/L (10-20); BUN (Urea Nitrogen) 43 mg/dL (9.8-20.1); Bilirubin, Total 0.3 mg/dL (0.2-1.2); CK (CPK) 44 U/L (29-168); Calc. Creatinine Clearance 0 mL/min (70-130); Calcium 10.2 mg/dL (7.8-10.44); Carbon Dioxide 27 mmol/L (23-31); Chloride 106 mmol/L (98-107); Estimated GFR-MDRD 32; Globulin 2.6 g/dL (2.4-3.5); Glucose 97 mg/dL (83-110); Lipase 60 U/L (8-78); Potassium 4.2 mmol/L (3.5-5.1); Sodium 142 mmol/L (136-145)
== END 2019-01-13 09:21 | disposition home or self-care (01) ==
LOC: ERS 08:14
DX: I20.8 Other forms of angina pectoris (principal); F41.9 Anxiety disorder, unspecified; F03.90 Unspecified dementia, unspecified severity, without behavioral disturbance, psychotic disturbance, mood disturbance, and anxiety; F32.9 Major depressive disorder, single episode, unspecified; Z87.891 Personal history of nicotine dependence; Z79.899 Other long term (current) drug therapy; Z79.82 Long term (current) use of aspirin
CPT/HCPCS: 36415; 71045; 80053; 82550; 83690; 83880; 84484; 85025; 93005; 96374; J2060

== ENCOUNTER 2019-02-02 16:54 | Observation (INO) | payer MEDICARE, BC ==
[2019-02-02 17:35] LABS: #Eosinphils 0.1 thou/uL (0.0-0.7); #Lymphocytes 0.7 thou/uL (1.20-3.40); #Monocytes 0.3 thou/uL (0.11-0.59); #Neutrophils 3.3 thou/uL (1.40-6.50); %Eosinophils 2.6 % (0.0-10.0); %Lymphocytes 16.2 % (21.0-51.0); %Monocytes 6.7 % (0.0-10.0); %Neutrophils 74.4 % (42.0-75.0); Hemoglobin 9.4 g/dL (12.0-16.0); Mean Corpuscular HGB CONC 34.4 g/dL (32.0-36.0); Mean Corpuscular Hemoglobin 27.9 pg (27.0-31.0); Mean Corpuscular Volume 81.2 fL (78.0-98.0); Mean Platelet Volume 7.2 fL (7.4-10.4); Platelet Count 130 thou/uL (130-400); RBC Distribution Width 13.4 % (11.5-14.5); Red Blood Cell (RBC) Count 3.35 mill/uL (4.20-5.40); White Blood Cell (WBC) Count 4.4 thou/uL (4.8-10.8)
[2019-02-02 17:56] LABS: ALT (SGPT) 16 U/L (8-55); AST (SGOT) 19 U/L (5-34); Albumin 4.1 g/dL (3.4-4.8); Alkaline Phosphatase 56 U/L (40-110); Anion Gap 12 mmol/L (10-20); BUN (Urea Nitrogen) 46 mg/dL (9.8-20.1); Bilirubin, Total 0.3 mg/dL (0.2-1.2); Calc. Creatinine Clearance 0 mL/min (70-130); Calcium 9.5 mg/dL (7.8-10.44); Carbon Dioxide 26 mmol/L (23-31); Chloride 105 mmol/L (98-107); Estimated GFR-MDRD 39; Globulin 2.5 g/dL (2.4-3.5); Glucose 96 mg/dL (83-110); Potassium 4.1 mmol/L (3.5-5.1); Protein, Total 6.6 g/dL (6.0-8.3); Sodium 139 mmol/L (136-145)
--- NOTE | 2019-02-02 18:11 | RAD ---
EXAM: Chest one view: HISTORY: Chest tightness, chest pain COMPARISON: 01/13/2019 FINDINGS: Stable hiatal hernia. Stable atherosclerotic ectatic changes of the aorta and scattered chronic lung changes. Heart size: Within normal limits. Lungs: Clear of acute process. No evidence for pneumonia, pleural effusion, acute edema, or pneumothorax, or other significant acute process. IMPRESSION: No significant acute intrathoracic disease. Stable exam.
[2019-02-02] MEDS ORDERED: Nitroglycerin 2% Ointment 1 INCH/1 GM Packet ONE (18:13)
[2019-02-02] MEDS ORDERED: Nitroglycerin 0.4 MG TAB 1 EACH ONE (18:13)
[2019-02-02] MEDS ORDERED: Aspirin Chewable 81 MG TAB ONE (18:39)
--- NOTE | 2019-02-02 20:45 | HP ---
CHIEF COMPLAINT: Chest tightness and palpitations. HISTORY OF PRESENT ILLNESS: Ms. Morris is an 84-year-old female, with past medical history of hypertension, hyperlipidemia, breast cancer, among others, presents to the emergency room with chest tightness and palpitations. The patient was reading the paper when symptoms started. Dixie shaky and chest felt very tight. Currently, the patient is feeling okay. The patient has had a cardiac stress test few years ago which was unremarkable. Initial workup in the emergency room including initial troponin and EKG, no acute findings. Given the patient's presentation and risk factors, the patient is being admitted to the hospital for further management. PAST MEDICAL HISTORY: 1. Hypertension. 2. Hyperlipidemia. 3. Breast cancer. 4. Anxiety/depression. PAST SURGICAL HISTORY: Left breast mastectomy. FAMILY HISTORY: Reviewed and noncontributory. SOCIAL HISTORY: She is a former tobacco and cigarette smoker, no history of drug use, she drinks alcohol socially. FAMILY HISTORY: Reviewed and noncontributory. HOME MEDICATIONS: Please see home medication reconciliation form for updated medications. ALLERGIES: THE PATIENT IS ALLERGIC TO AMOXICILLIN, ATORVASTATIN, AUGMENTIN, ZOPICLONE, LIPITOR, POTASSIUM CLAVULANATE WHICH IS UNCONFIRMED, SIMVASTATIN. REVIEW OF SYSTEMS: Review of 14 systems is negative except what is mentioned in History of Present Illness. PHYSICAL EXAMINATION: GENERAL: The patient is awake, alert. She is hard of hearing. HEAD AND NECK: Normocephalic, atraumatic. NECK: Supple. No JVD. CHEST: Fair, bilateral air entry. HEART: S1, S2. Regular. ABDOMEN: Soft, nontender. Bowel sounds present. NEURO: The patient is hard of hearing. Otherwise, awake, alert, oriented x3. No focal findings. PSYCH: Normal mood. EXTREMITIES: No clubbing or cyanosis. LABORATORY DATA: Chest x-ray, no acute findings. Troponin less than 0.01. BUN is 46, creatinine 1.3. Otherwise electrolytes unremarkable. WBC count is 4.4, hemoglobin is 9.4, MCV is 81, platelets 130. EKG as mentioned above in History of Present Illness. ASSESSMENT: 1. Acute chest pain. 2. Palpitations. 3. Hypertension. 4. Hyperlipidemia. 5. History of breast cancer. PLAN: 1. Admit. 2. Aspirin. 3. Telemetry monitoring. 4. Serial cardiac enzymes. 5. 2D echo. 6. Consult Cardiology in a.m. for evaluation and further recommendations. 7. Reconcile home medications. 8. DVT prophylaxis, SCD. 9. Expected length of stay 1 midnight if the patient is stable and further workup negative. Job ID: [id number]
[2019-02-02 21:05] LABS: Troponin I 0.023 ng/mL (< 0.028)
[2019-02-02] MEDS ORDERED: Morphine 2 MG/ML SYRINGE ONE ×2 (21:21→21:23)
[2019-02-02 22:57] VITALS: BMI 17.6
[2019-02-02] MEDS ORDERED: Nitroglycerin 2% Ointment 1 INCH/1 GM Packet TOP SCH (23:00)
[2019-02-02] MEDS ORDERED: cloNIDine 0.1 MG TAB PO PRN (23:24)
[2019-02-02] MEDS ORDERED: NIFEdipine XL 60 MG TAB PO SCH (23:30)
[2019-02-02] MEDS ORDERED: Acetaminophen 325 MG TAB PO PRN (23:47)
[2019-02-02 23:55] LABS: Troponin I Less than 0.010 ng/mL (< 0.028)
[2019-02-03] MEDS ORDERED: clonazePAM 0.5 MG TAB PO SCH (03:00)
[2019-02-03] MEDS: Aspirin 325 mg Enteric Coated Tablet PO SCH ×2 (08:54→09:31)
[2019-02-03] MEDS: NIFEdipine XL 60 MG TAB PO SCH ×3 (08:55→20:18)
[2019-02-03] MEDS ORDERED: FLU VACC TS2019-20(65YR UP)/PF 180 MCG/0.5 ML SYRINGE IM ONE (09:00)
[2019-02-03] MEDS ORDERED: Prevnar 13-Val Conj/PF 0.5 ML SYRINGE IM ONE (09:00)
--- NOTE | 2019-02-03 14:10 | CON ---
DATE OF CONSULTATION: 02/03/2019 REASON FOR CONSULTATION: Palpitations, possibly some chest pressure. The patient does not recall now. She has dementia. HISTORY OF PRESENT ILLNESS: Ms. Morris is an 84-year-old woman. She came to the hospital yesterday apparently complaining of some palpitations and chest discomfort. She does not remember that now. She does live at home by herself. She is able to tell me her name and that she is at the hospital and eventually she was able to tell me [facility], but does not know what year it is. She does know it is in the fall. The patient does state she feels anxious now. Otherwise, the patient has been apparently in fair condition. MEDICATIONS: At home, 1. Nifedipine 60 mg twice a day. 2. Clonazepam. 3. Aricept. 4. Levothyroxine. ALLERGIES: AMOXICILLIN AND ATORVASTATIN. SOCIAL HISTORY: As mentioned, she lives alone. She does have some family support. REVIEW OF SYSTEMS: Not really reliable due to the dementia. PHYSICAL EXAMINATION: GENERAL: This is a pleasant elderly woman. VITAL SIGNS: She is 84 years of age. She is 5 feet 4 inches, 103 pounds, blood pressure earlier 174/90, and pulse is 100 and sinus. HEENT: Eyes, sclerae and nonicteric. LUNGS: Clear. CARDIAC: Normal S1 and normal S2. There is no murmur, rub, or gallop. ABDOMEN: Soft and nontender. EXTREMITIES: Warm, dry. No clubbing. No cyanosis. No edema. LABORATORY DATA: EKG did not show any acute changes. Hemoglobin is 9.4, platelet count 130. The sodium is 139, potassium is 4.7, recent iron level was 110 with a ferritin level of 27 back in the spring. The patient was scheduled for an echocardiogram. The prosthetic technician came in the room and tried to do the procedure, explained the procedure to her, but she declined having the echo. She said now she is agreeable to having it done. ASSESSMENT: 1. Palpitations. 2. Dementia. 3. Hypertension. 4. Anemia, probably iron deficiency. PLAN: 1. She has now agreed to the echo, we will try that again. 2. I do not think it is reasonable to proceed to invasive testing or therapy due to the confusion and disorientation. She would be not a candidate for surgery, also poor candidate for percutaneous therapy as if she gets confused at home and does not take anti-platelet drugs that can be disastrous. Conservative medical therapy seems most appropriate. Family is in the room and agrees with that. 3. We will check ferritin level; if it is low, consider intravenous iron. Job ID: [id number]
[2019-02-03] MEDS: Lorazepam 1 MG TAB PO PRN (18:04)
[2019-02-03 18:24] LABS: Bacteria/HPF None Seen HPF (None Seen); Bilirubin Negative (Negative); Blood, Urine Negative (Negative); Clarity Clear (Clear); Glucose, Urine (Dipstick) Normal (Negative); Leukocyte Negative Leu/uL (Negative); Nitrite Negative (Negative); Protein, Urine (Dipstick) Negative (Neg-Trace); RBC/HPF 0-3 HPF (0-3); Squamous Epithelial 0-3 HPF (0-3); Urine Culture Reflex No No; Urobilinogen Normal mg/dL (Less than 2); WBC/HPF 0-3 HPF (0-3)
--- NOTE | 2019-02-03 19:24 | PDOC.HOSPP ---
- Subjective Encounter Date: 02/03/19 Encounter Time: 16:00 Subjective: f/u for CP, palpitations with initial work up unrevealing. - Objective Vital Signs & Weight: Vital Signs (12 hours) Temp Pulse Pulse Pulse Resp BP BP 02/03/19 15:25 98.3 F 89 18 02/03/19 14:02 96 104 H 139/68 164/76 H 02/03/19 12:10 99 02/03/19 09:30 99 02/03/19 08:50 97.6 F 99 16 BP Pulse Ox 02/03/19 15:25 166/79 H 98 02/03/19 14:02 02/03/19 12:10 148/70 H 02/03/19 09:30 02/03/19 08:50 141/75 H 96 Weight Admit Weight 103 lb 1.6 oz Weight 103 lb 1.6 oz I&O: 02/02/19 02/03/19 02/04/19 06:59 06:59 06:59 Intake Total 950 Balance 950 Result Diagrams: 02/02/19 17:28 02/02/19 17:28 Additional Labs: Laboratory Tests 02/02/19 02/02/19 02/02/19 17:28 20:33 23:24 Ferritin Troponin I Less than 0.010 0.023 Less than 0.010 02/03/19 13:31 Ferritin 51.28 Troponin I EKG Reviewed by me: Yes (Tele - SR) Hospitalist ROS - Medication Medications: Active Medications Generic Name Dose Route Start Last Admin Trade Name Freq PRN Reason Stop Dose Admin Lorazepam 1 mg 02/03/19 16:40 02/03/19 18:04 Ativan PO 1 mg Q4H PRN Administration Anxiety/Agitation Nifedipine 60 mg 02/03/19 09:00 02/03/19 09:30 Procardia Xl PO 60 mg BID MARILYNN Administration - Exam General Appearance: NAD, awake alert Eye: PERRL, anicteric sclera ENT: normocephalic atraumatic, no oropharyngeal lesions Neck: supple, symmetric, no JVD, no thyromegaly, no lymphadenopathy Heart: RRR, no gallops, no rubs, normal peripheral pulses Respiratory: CTAB, no wheezes, no rales, no ronchi, normal chest expansion Gastrointestinal: soft, non-tender, non-distended, normal bowel sounds, no palpable masses Extremities: no cyanosis, no clubbing, no edema Skin: normal turgor, no lesions Neurological: cranial nerve grossly intact, no new deficit Musculoskeletal: normal tone, generalized weakness Psychiatric: normal affect, oriented to person, oriented to place Hosp A/P (1) Chest pain Code(s): R07.9 - CHEST PAIN, UNSPECIFIED Status: Acute Plan: Stable currently, continue ASA, Metoprolol and Crestor, no acute interventions recommended give advanced dementia/confusion (2) Anxiety and depression Code(s): F41.8 - OTHER SPECIFIED ANXIETY DISORDERS Status: Chronic Plan: Anxiolytics, Ativan 1mg po q4h prn (3) CKD (chronic kidney disease) stage 3, GFR 30-59 ml/min Code(s): N18.3 - CHRONIC KIDNEY DISEASE, STAGE 3 (MODERATE) Status: Chronic Plan: Avoid nephrotoxic meds and limit contrast exposure (4) Hypertension Code(s): I10 - ESSENTIAL (PRIMARY) HYPERTENSION Status: Chronic Qualifiers: Hypertension type: essential hypertension Qualified Code(s): I10 - Essential (primary) hypertension Plan: Resume home BP regimen, titrate to optimal response (5) Hypothyroidism Code(s): E03.9 - HYPOTHYROIDISM, UNSPECIFIED Status: Chronic Plan: Continue Levothyroxine 88mcg daily (6) Physical deconditioning Code(s): R53.81 - OTHER MALAISE Status: Chronic Plan: Plan for inpt rehab then transition to assisted living at [facility] - Plan PT/OT, marriage and family social worker, out of bed/ambulate, DVT proph w/SCDs Stable overall Continue ASA Continue Metoprolol 2D echo pending Inpt Rehab screening in progress
[2019-02-04] MEDS ORDERED: Levothyroxine Sodium 88 MCG TAB PO SCH (06:00)
[2019-02-04] MEDS: NIFEdipine XL 60 MG TAB PO SCH (08:21)
[2019-02-04] MEDS ORDERED: Aspirin 81 mg Enteric Coated Tablet PO SCH (09:00)
[2019-02-04] MEDS ORDERED: clonazePAM 0.5 MG TAB PO SCH (09:00)
[2019-02-04] MEDS ORDERED: Ubidecarenone 50 MG CAP PO SCH (09:00)
[2019-02-04] MEDS ORDERED: Donepezil HCl 5 MG TAB PO SCH (09:00)
[2019-02-04] MEDS ORDERED: Rosuvastatin 20 MG TAB PO SCH (09:00)
[2019-02-04 12:20] VITALS: TEMP 97.9
[2019-02-04] MEDS: Lorazepam 1 MG TAB PO PRN (13:32)
[2019-02-04 13:48] VITALS: BP 139/83
--- NOTE | 2019-02-04 19:29 | DIS ---
DATE OF ADMISSION: 02/02/2019 DATE OF DISCHARGE: 02/04/2019 DISCHARGE DIAGNOSES: 1. Chest pain, multifactorial including hypertension, stable. 2. Hypertension, improved. 3. Anxiety/depression. 4. Chronic kidney disease stage 3. 5. Hypothyroidism, stable. 6. Physical deconditioning. 7. Dementia, likely Alzheimer type. CONSULTATIONS: Dr. Jimenez with Cardiology Service. PERTINENT LABORATORY AND X-RAY FINDINGS: Creatinine 1.32, estimated GFR of 39, ferritin 51.3. Troponin I negative x3. CBC showed a hemoglobin 9.4, hematocrit 27, platelet count 130. Portable chest x-ray dated 02/02/2019, showed no acute cardiopulmonary process. 2D transthoracic echocardiogram dated 02/03/2019, showed ejection fraction of 50% to 55%. Moderate left atrial enlargement. HOSPITAL COURSE: The patient was observed on the telemetry unit after initially presenting with chest pain and palpitations. The patient with longstanding history of hypertension with labile blood pressure trend on admission. The patient continued nifedipine 60 mg b.i.d. with the addition of metoprolol-XL 25 mg daily. The patient's blood pressure trend improved with the addition of beta-smooth therapy and the patient overall remained clinically stable. Telemetry monitoring showed sinus rhythm without acute arrhythmia or dysrhythmia. The patient was also evaluated by the Cardiology Service without recommendation for any aggressive intervention and continued medical management. Due to the patient's overall deconditioned status, discussions were had with the family regarding inpatient rehabilitation evaluation with eventual transfer to long-term care. The patient has been approved for inpatient rehabilitation transfer on 02/04/2019. I have examined the patient at the time of discharge and discussed followup instructions. Family understands discharge plan and agrees to proceed. DISCHARGE MEDICATIONS: 1. Vitamin D3 of 2000 units p.o. daily. 2. Clonazepam 0.125 mg p.o. daily. 3. Aricept 5 mg p.o. daily. 4. Levothyroxine 88 mcg p.o. daily. 5. Nifedipine extended release 60 mg p.o. b.i.d. 6. Crestor 20 mg p.o. daily. 7. Zoloft 200 mg p.o. daily. 8. Coenzyme Q10 200 mg p.o. daily. 9. Vitamin E 1000 units p.o. daily. 10. Enteric-coated aspirin 81 mg p.o. daily. 11. Metoprolol-XL 25 mg p.o. daily. FOLLOWUP: The patient to follow up with Dr. Miky Rodriguez after discharge from inpatient rehabilitation. CONDITION ON DISCHARGE: Fair. ACTIVITY: Rolling walker with standby/contact guard assistance. DIET: Heart healthy. CODE STATUS: Full. DISPOSITION: Discharged to [facility] on 02/04/2019. Job ID: [id number]
--- NOTE | 2019-02-08 14:28 | EKG ---
Test Reason : Blood Pressure : / mmHG Vent. Rate : 087 BPM Atrial Rate : 087 BPM P-R Int : 204 ms QRS Dur : 078 ms QT Int : 386 ms P-R-T Axes : 072 004 079 degrees QTc Int : 464 ms Normal sinus rhythm Septal infarct , age undetermined Abnormal ECG Confirmed by BHAVIN MOREL, BETY ([id number]), greeting card editor CARLOS CAVAZOS ([id number]) on 02/08/2019 2:28:24 PM Referred By: Confirmed By:BETY DELCID MD
== END 2019-02-04 15:34 ==
LOC: ERS 16:54 → 2SW 18:25
PROVIDERS: ADMIT Internal Medicine; ATTEND Internal Medicine
DX: R07.89 Other chest pain (principal); R00.2 Palpitations; I12.9 Hypertensive chronic kidney disease with stage 1 through stage 4 chronic kidney disease, or unspecified chronic kidney disease; N18.3 Chronic kidney disease, stage 3 (moderate); G30.9 Alzheimer's disease, unspecified; F02.80 Dementia in other diseases classified elsewhere, unspecified severity, without behavioral disturbance, psychotic disturbance, mood disturbance, and anxiety; F41.9 Anxiety disorder, unspecified; F32.9 Major depressive disorder, single episode, unspecified; E03.9 Hypothyroidism, unspecified; E78.5 Hyperlipidemia, unspecified; R53.81 Other malaise; Z79.82 Long term (current) use of aspirin; Z79.899 Other long term (current) drug therapy; Z85.3 Personal history of malignant neoplasm of breast; Z87.891 Personal history of nicotine dependence; Z88.1 Allergy status to other antibiotic agents; Z88.8 Allergy status to other drugs, medicaments and biological substances
CPT/HCPCS: 71045; 80053; 81001; 82728; 84484 ×2; 85025; 90670; 93005; 93306; 94760 ×2; 96374; 97116; 97139 ×3; 97530; 99285; G0009; G0378 ×4; 36415; 90471; J2270

== ENCOUNTER 2019-02-20 07:39 | Inpatient (IN) | payer MEDICARE, BC ==
[2019-02-20] MEDS ORDERED: Lorazepam 2 MG/ML VIAL ONE (08:01)
[2019-02-20] MEDS ORDERED: Nitroglycerin 2% Ointment 1 INCH/1 GM Packet ONE (08:01)
--- NOTE | 2019-02-20 08:08 | RAD ---
XR Chest 1 View Portable HISTORY: Chest pain COMPARISON: 02/02/2019 FINDINGS: The heart size is normal. The aorta is tortuous. The lungs are well expanded without focal areas of consolidation, pneumothorax or pleural effusions. Hiatal hernia is stable. IMPRESSION: No radiographic evidence of acute cardiopulmonary process.
[2019-02-20 08:40] LABS: Hemoglobin 10.1 g/dL (12.0-16.0); Mean Corpuscular Hemoglobin 27.7 pg (27.0-31.0); Red Blood Cell (RBC) Count 3.66 mill/uL (4.20-5.40)
[2019-02-20 08:41] LABS: #Eosinphils 0.1 thou/uL (0.0-0.7); #Lymphocytes 0.7 thou/uL (1.20-3.40); #Monocytes 0.3 thou/uL (0.11-0.59); #Neutrophils 2.9 thou/uL (1.40-6.50); %Basophils 0.3 % (0.0-1.0); %Eosinophils 3.7 % (0.0-10.0); %Lymphocytes 17.2 % (21.0-51.0); %Monocytes 7.2 % (0.0-10.0); %Neutrophils 71.6 % (42.0-75.0); Bite Cells SLIGHT = 2-5 cells (100X) (0-1/hpf); MDiff Complete? YES; Mean Platelet Volume 7.4 fL (7.4-10.4); Platelet Count 106 thou/uL (130-400); Platelet Morphology Comment Appears Decreased; Polychromasia SLIGHT = 2-3 cells (100X) (0-2/hpf)
[2019-02-20 08:43] LABS: ALT (SGPT) 14 U/L (8-55); AST (SGOT) 18 U/L (5-34); Albumin 4.1 g/dL (3.4-4.8); Alkaline Phosphatase 56 U/L (40-110); Anion Gap 12 mmol/L (10-20); BUN (Urea Nitrogen) 43 mg/dL (9.8-20.1); Bilirubin, Total 0.3 mg/dL (0.2-1.2); CK (CPK) 42 U/L (29-168); Calc. Creatinine Clearance 0 mL/min (70-130); Calcium 9.2 mg/dL (7.8-10.44); Carbon Dioxide 27 mmol/L (23-31); Chloride 106 mmol/L (98-107); Estimated GFR-MDRD 39; Globulin 2.3 g/dL (2.4-3.5); Glucose 97 mg/dL (83-110); Lipase 49 U/L (8-78); Potassium 3.8 mmol/L (3.5-5.1); Protein, Total 6.4 g/dL (6.0-8.3); Sodium 141 mmol/L (136-145)
[2019-02-20 09:05] LABS: CKMB 1.7 ng/mL (0-6.6)
[2019-02-20] MEDS ORDERED: Enoxaparin Sodium 60 MG/0.6 ML SYRINGE ONE (09:20)
[2019-02-20 11:59] LABS: Troponin I Less than 0.010 ng/mL (< 0.028)
[2019-02-20] MEDS ORDERED: Aspirin 325 MG TAB PO SCH (12:15)
[2019-02-20] MEDS ORDERED: Ondansetron PF 4 MG/2 ML Vial IVP PRN ×2 (12:15→13:57)
[2019-02-20] MEDS ORDERED: Ondansetron ODT 4 MG TAB PO PRN ×2 (12:16→13:57)
[2019-02-20] MEDS ORDERED: Acetaminophen 650 MG Suppository PR PRN (13:57)
--- NOTE | 2019-02-20 15:25 | HP ---
PRIMARY CARE PHYSICIAN: Dr. Rodriguez. CHIEF COMPLAINT: Chest pain. HISTORY OF PRESENT ILLNESS: Ms. Morris is a pleasant 84-year-old woman, who presents with complaint of chest pain that woke her from her sleep at 6:00 this morning. She states the pain was in the center of her chest, which she described as a pressure and rated a 7 or 8/10 in severity. She states the pain was nonradiating. She did not have any associated diaphoresis, nausea, or vomiting. Denies any shortness of breath. The patient alerted her daughter immediately and was brought to the emergency department. En route to the hospital, she was given 324 mg of aspirin by the EMS as well as nitroglycerin. The patient states her pain is only slightly. Per the ED note, vital signs en route showed a blood pressure of 202/91, which then came down to 192/88 after nitroglycerin was given. The patient underwent an EKG in the emergency department, which showed normal sinus rhythm with a heart rate of 73, nonspecific ST segment and nonspecific T-waves. Chest x-ray was done and unremarkable. The patient was given Nitro-Bid 1 inch, 1 mg of Ativan as well as Lovenox 1 mg/kg. She was referred for further monitoring and workup. Laboratory studies that was done showed white count of 4, hemoglobin of 10, hematocrit of 30.8, platelets 106, neutrophils 71.6%. Sodium 141, potassium 3.8, BUN 43, creatinine 1.32, GFR 39, total bilirubin 0.3, AST 18, ALT 14, alkaline phosphatase 56. CK 42, troponin initially indeterminate at 0.031. Second one was negative at less than 0.010. Lipase 49. BNP 190. The patient states she has had similar episodes in the past for which she has sought medical attention. She was last here with chest pain in December at which time, she had a stress test, which showed an EF of 36% with global hypokinesis. There was a small inferolateral wall scar and her TID ratio was said to be 1.39. The patient was also here just recently and discharged on 02/04/2019 again after presenting with chest pain. During that admission, she was seen by Dr. Jimenez. She had an echo done, which showed an EF of 50% to 55% with moderate left atrial enlargement. At that time, Dr. Jimenez felt there was no indication for invasive testing or treatment due to patient's underlying confusion. Conservative medical treatment was recommended. In the ED, a consultation was placed with Dr. Presley to Dr. Jimenez. At this present time, the patient is without any complaints. She states the pain has eased fully since treatment given in the ED and has not recurred. She is currently eating lunch and has no complaints. REVIEW OF SYSTEMS: The patient denies having any recent fevers, chills, or sweats. Reports having a good appetite. Reports normal bowel movements and no urinary symptoms. All other review of systems apart from those mentioned above in HPI are negative. PAST MEDICAL HISTORY: 1. CAD. 2. Hypertension. 3. Hyperlipidemia. 4. History of breast cancer. 5. Anxiety. 6. Depression. PAST SURGICAL HISTORY: Left breast mastectomy. FAMILY HISTORY: Noncontributory. SOCIAL HISTORY: The patient previously smoked tobacco, but quit more than 10 years ago. Denies any alcohol consumption or illicit drug use. ALLERGIES: 1. AMOXICILLIN. 2. ATORVASTATIN. 3. POTASSIUM CLAVULANATE. 4. SIMVASTATIN. 5. ESZOPICLONE. CURRENT MEDICATIONS: 1. Donepezil. 2. Levothyroxine. 3. Nifedipine. 4. Quetiapine. 5. Rosuvastatin. 6. Sertraline. 7. Aspirin. 8. Metoprolol succinate (Toprol-XL). PHYSICAL EXAMINATION: GENERAL: The patient appears well developed, well nourished, is in no acute distress. VITAL SIGNS: Temperature 97.8, pulse 70, respirations 18, saturations 98% on room air, blood pressure 160/70. HEENT: Normocephalic and atraumatic. Pupils are equal, round, and reactive to light. Sclerae anicteric. Oropharynx is clear. NECK: Supple. LUNGS: Clear to auscultation bilaterally without wheezes, rales, or rhonchi. CARDIAC: Regular rate and rhythm. ABDOMEN: Soft, nontender, nondistended. Normoactive bowel sounds present. EXTREMITIES: No leg swelling or edema. NEUROLOGIC: Alert and oriented x3. SKIN: Without rash or jaundice. INVESTIGATIONS: As mentioned above in HPI. IMPRESSION AND PLAN: Ms. Morris is a very pleasant 84-year-old woman, presenting with recurring chest pain, who has been referred for management of the following. 1. Acute coronary syndrome, ruled out. Continue to trend troponins. Initial was elevated at 0.031. Second was negative. Awaiting third troponin. The patient is pain-free at present. She was treated with aspirin, Nitro-B.i.d., and given Lovenox 1 mg/kg. Consult has been placed to Dr. Jimenez, who did recommend conservative management in the past. At present, she is not confused as she was previously and her more recent admission. We will check TSH and magnesium. 2. Hypertension. Monitor blood pressure. Resume home medications once verified. 3. Hyperlipidemia. We will check fasting lipid panel with morning labs. Resume home medications. 4. Gastrointestinal prophylaxis with famotidine. 5. Deep venous thrombosis prophylaxis with mechanical SCDs. The patient has already been given Lovenox in the emergency department. 6. Code status, full. Her surrogate decision maker is her daughter, Rhonda Morris. The patient's case to be discussed with attending for further recommendations. Job ID: [id number]
[2019-02-20] MEDS ORDERED: Communication Order-Pharmacy FS SCH (17:45)
--- NOTE | 2019-02-20 20:58 | CON ---
DATE OF CONSULTATION: 02/20/2019 REASON FOR CONSULTATION: Chest pressure, unstable angina. HISTORY OF PRESENT ILLNESS: Ms. Judi Morris is an 84-year-old woman. The patient has a history of multiple episodes of chest pressure including pressure at rest. The patient recently was in the hospital with chest pressure. At that time, the patient, when I saw her, was extremely confused and did not remember a lot of the episode of the chest pressure. In addition, she was refusing many tests including she refused an echocardiogram, but later agreed to an echocardiogram. Due to her level of confusion, it is thought that would be a poor option to try to proceed with any type of invasive testing. The patient was released to home. However, the patient has continued to have chest pain and pressure. She was brought to the hospital with pressure across her chest. She said she felt like "I was dying." This time, the patient is much more alert and oriented. The patient is resting comfortably now. PAST MEDICAL HISTORY: 1. She has a history of tobacco, stopped many years ago. 2. Hypertension. 3. Hypercholesterolemia. She has a caregiver who stays with her 24 hours a day. The caregiver says that she is taking the medicines as prescribed now. MEDICATIONS: See nurse's notes. She is on 1. Rosuvastatin. 2. Aspirin. 3. Procardia. 4. Metoprolol. ALLERGIES: LISTED TO ATORVASTATIN, POTASSIUM, SIMVASTATIN, AMOXICILLIN. REVIEW OF SYSTEMS: CONSTITUTIONAL: No significant weight gain or loss. VISION: No changes. HEARING: No changes. PULMONARY: No cough or wheezing. GASTROINTESTINAL: No nausea, vomiting, or diarrhea. SKIN: No rashes. NEUROLOGIC: No unilateral weakness or numbness. PSYCHIATRIC: No unusual depression or anxiety. PHYSICAL EXAMINATION: GENERAL: This is a thin 5 feet 4 inches tall, 106-pound woman. BMI is a low at 18. HEENT: Eyes, sclerae are nonicteric. Mouth, mucous membranes are moist. NECK: Supple. No lymphadenopathy. LUNGS: Clear no wheezing, rales, or rhonchi. CARDIAC: Normal S1, normal S2. There is no murmur, rub, or gallop. ABDOMEN: Soft and nontender. EXTREMITIES: Warm, dry. No clubbing or cyanosis. There is no edema. EKG did not show any acute changes. PERTINENT LABORATORY DATA: Hemoglobin is 10, creatinine 1.32. Troponin 0.031. BNP 190. Recent noninvasive imaging did reveal that she has transient ischemic dilatation with stress testing with an ejection fraction of 39%. There is a small inferolateral wall scar. Echocardiogram, however, looked like the left ventricular function was normal at 50% to 55%. ASSESSMENT: 1. Chest pain, this is typical of unstable angina. 2. Intermittent confusion, but the patient is much more lucid at this time. 3. Suspect multivessel coronary artery disease based on the transient ischemic dilatation. PLAN: In view of her being much more lucid, she is able to hold much more accurate conversation in terms of informed consent. I discussed risks of catheterization including bleeding, loss of blood supply to the leg, loss of blood supply to the kidney, heart attack, stroke, risk of stenting including all the above, plus stent thrombosis, vessel perforation, bleeding around the heart, thrombosis leading into . The patient understands the risks of the procedure. She is at increased risk due to her advanced age and frail status, as well as being underweight. There is a high risk of bleeding, also high risk of renal failure. The patient understands all this and wishes to proceed in view of the chest pressure she has been having at rest. Job ID: [id number]
[2019-02-20] MEDS ORDERED: Famotidine/PF 20 mg/2ml Vial SLOW IVP SCH (21:00)
[2019-02-20] MEDS ORDERED: Non-Formulary Item 1 EACH (Nifedipine [Nifedipine Er] 60 MG) PO SCH (21:00)
[2019-02-20] MEDS: NIFEdipine XL 60 MG TAB PO SCH (21:59)
[2019-02-21] MEDS ORDERED: Sodium Chloride 0.9% 1,000 ML IV SCH (05:00)
[2019-02-21] MEDS: Rosuvastatin 20 MG TAB PO SCH (05:41)
[2019-02-21] MEDS: NIFEdipine XL 60 MG TAB PO SCH ×2 (05:41→21:00)
[2019-02-21] MEDS: Acetaminophen 325 MG TAB PO PRN ×2 (05:41→11:28)
[2019-02-21] MEDS: Levothyroxine Sodium 88 MCG TAB PO SCH (05:42)
[2019-02-21] MEDS: Donepezil HCl 5 MG TAB PO SCH (05:42)
[2019-02-21] MEDS: Aspirin 81 mg Enteric Coated Tablet PO SCH (05:42)
[2019-02-21 06:17] LABS: #Eosinphils 0.2 thou/uL (0.0-0.7); #Monocytes 0.3 thou/uL (0.11-0.59); #Neutrophils 2.5 thou/uL (1.40-6.50); %Basophils 0.3 % (0.0-1.0); %Eosinophils 4.6 % (0.0-10.0); %Lymphocytes 24.8 % (21.0-51.0); %Monocytes 7.6 % (0.0-10.0); %Neutrophils 62.7 % (42.0-75.0); Hemoglobin 9.8 g/dL (12.0-16.0); Mean Corpuscular HGB CONC 32.8 g/dL (32.0-36.0); Mean Corpuscular Hemoglobin 27.8 pg (27.0-31.0); Mean Corpuscular Volume 84.7 fL (78.0-98.0); Mean Platelet Volume 8.1 fL (7.4-10.4); Platelet Count 114 thou/uL (130-400); Red Blood Cell (RBC) Count 3.52 mill/uL (4.20-5.40); White Blood Cell (WBC) Count 4.1 thou/uL (4.8-10.8)
[2019-02-21 06:38] LABS: Anion Gap 12 mmol/L (10-20); BUN (Urea Nitrogen) 42 mg/dL (9.8-20.1); Calc. Creatinine Clearance 25 mL/min (70-130); Calcium 9.3 mg/dL (7.8-10.44); Carbon Dioxide 24 mmol/L (23-31); Cardiac Risk 3.4 (Less than 4.5); Chloride 108 mmol/L (98-107); Cholesterol 205 mg/dl (< 200 Desired); Estimated GFR-MDRD 39; Glucose 82 mg/dL (83-110); HDL Cholesterol 61 mg/dL (>60 Neg Risk); LDL Cholesterol, Calculated 120 mg/dL; Magnesium 2.1 mg/dL (1.6-2.6); Potassium 4.2 mmol/L (3.5-5.1); Sodium 140 mmol/L (136-145); Triglycerides 121 mg/dL (Less than 150)
[2019-02-21] MEDS ORDERED: Lidocaine 1% (PF) 30 ML VIAL ONE (06:48)
[2019-02-21] MEDS ORDERED: Levothyroxine Sodium 88 MCG TAB PO SCH (09:00)
[2019-02-21] MEDS ORDERED: Nitroglycerin 2% Ointment 1 INCH/1 GM Packet ONE (09:18)
[2019-02-21] MEDS ORDERED: Sodium Chloride 0.9% 200 ML IV PRN (09:22)
[2019-02-21] MEDS ORDERED: Nitroglycerin 0.4 MG TAB (25 Tab Bottle) SL PRN (09:22)
[2019-02-21] MEDS ORDERED: Iopamidol 370 76% 100 ML VIAL ONE (13:17)
[2019-02-21] MEDS ORDERED: Clopidogrel Bisulfate 300 MG TAB PO SCH (14:00)
[2019-02-21 15:26] VITALS: BMI 18.3
--- NOTE | 2019-02-21 18:18 | PRG ---
DATE OF SERVICE: 02/21/2019 Ms. Morris underwent cardiac catheterization today. She has heavily calcified coronary arteries. I think she is clearly a suboptimal candidate for percutaneous therapy due to the calcium. She is also very frail and has some degree of intermittent confusion and is suboptimal patient for bypass as well. The plan is to try to add Plavix to her regimen, nitroglycerin if needed. If the symptoms persist, we will have to make a difficult decision whether to consider bypass surgery versus attempt to stent in the right coronary artery, which may be very difficult due to the calcium in the coronaries. For now, we will give her a trial of medicine first. Okay to me to be released home tomorrow if doing well. Job ID: [id number]
[2019-02-21] MEDS ORDERED: Famotidine 20 MG TAB PO SCH (21:00)
[2019-02-21] MEDS ORDERED: cloNIDine 0.1 MG TAB PO PRN (22:26)
--- NOTE | 2019-02-21 22:44 | PDOC.HOSPP ---
- Subjective Encounter Date: 02/21/19 Encounter Time: 18:30 Subjective: Patient seen and examined for CP. s/p Cath. No new CP. No new complaints. No overnight events - Objective Vital Signs & Weight: Vital Signs (12 hours) Temp Pulse Resp BP BP Pulse Ox 02/21/19 22:27 192/98 H 02/21/19 21:00 80 02/21/19 19:25 97.7 F 80 18 183/85 H 96 02/21/19 15:02 97.8 F 70 18 135/62 97 02/21/19 11:50 97.5 F L 62 17 169/81 H 97 Weight Admit Weight 106 lb 11.2 oz Weight 106 lb 11.2 oz I&O: 02/20/19 02/21/19 02/22/19 06:59 06:59 06:59 Intake Total 690 Output Total 300 Balance 690 -300 Result Diagrams: 02/21/19 06:09 02/21/19 06:09 EKG Reviewed by me: Yes (Tele SR) Hospitalist ROS - Review of Systems Respiratory: denies: cough, dry, shortness of breath, hemoptysis, SOB with excertion, pleuritic pain, sputum, wheezing, other Cardiovascular: denies: chest pain, palpitations, orthopnea, paroxysmal noc. dyspnea, edema, light headedness, other - Medication Medications: Active Medications Generic Name Dose Route Start Last Admin Trade Name Freq PRN Reason Stop Dose Admin Acetaminophen 650 mg 02/20/19 13:57 02/21/19 11:28 Tylenol PO 650 mg Q4H PRN Administration Headache/Fever/Mild Pain (1-3) Aspirin 81 mg 02/21/19 09:00 02/21/19 05:42 Ecotrin PO 81 mg DAILY MARILYNN Administration Donepezil HCl 5 mg 02/21/19 09:00 02/21/19 05:42 Aricept PO 5 mg DAILY MARILYNN Administration Famotidine 20 mg 02/21/19 21:00 02/21/19 21:01 Pepcid PO 20 mg 2100 MARILYNN Administration Levothyroxine Sodium 88 mcg 02/21/19 06:00 02/21/19 05:42 Synthroid PO 88 mcg 0600 MARILYNN Administration Metoprolol Succinate 25 mg 02/21/19 09:00 02/21/19 05:42 Toprol Xl PO 25 mg DAILY MARILYNN Administration Nifedipine 60 mg 02/20/19 21:00 02/21/19 21:00 Procardia Xl PO 60 mg BID MARILYNN Administration Ondansetron HCl 4 mg 02/20/19 13:57 02/21/19 11:28 Zofran Odt PO 4 mg Q6H PRN Administration Nausea/Vomiting Quetiapine Fumarate 50 mg 02/20/19 21:00 02/21/19 21:00 Seroquel PO 50 mg HS MARILYNN Administration Rosuvastatin Calcium 20 mg 02/21/19 09:00 02/21/19 05:41 Crestor PO 20 mg DAILY MARILYNN Administration Sodium Chloride 10 ml 02/20/19 21:00 02/21/19 21:00 Flush - Normal Saline IVF 10 ml Q12HR MARILYNN Administration - Exam General Appearance: NAD Heart: RRR, no gallops Respiratory: CTAB, no rales Gastrointestinal: soft, non-tender, non-distended, normal bowel sounds Extremities: no cyanosis, no clubbing Hosp A/P - Plan DVT proph w/SCDs Unstable angina HTN HLD CKD 3 Hypothyroidism PLAN: s/p Cath Plavix added Cont ASA/Statins/BB Cont other meds
[2019-02-22] MEDS: Levothyroxine Sodium 88 MCG TAB PO SCH (05:59)
[2019-02-22] MEDS: Acetaminophen 325 MG TAB PO PRN (05:59)
[2019-02-22] MEDS: Aspirin 81 mg Enteric Coated Tablet PO SCH (08:20)
[2019-02-22] MEDS: Rosuvastatin 20 MG TAB PO SCH (08:20)
[2019-02-22] MEDS: Donepezil HCl 5 MG TAB PO SCH (08:20)
[2019-02-22] MEDS ORDERED: NIFEdipine XL 90 MG TAB PO SCH (09:00)
[2019-02-22] MEDS ORDERED: Clopidogrel Bisulfate 75 MG TAB PO SCH (09:00)
[2019-02-22 11:35] VITALS: BP 112/55; TEMP 98.5
--- NOTE | 2019-02-24 11:17 | DIS ---
DATE OF ADMISSION: 02/21/2019 DATE OF DISCHARGE: 02/22/2019 PRIMARY CARE PROVIDER: Miky Rodriguez MD DISCHARGE DIAGNOSES: 1. Unstable angina. 2. Two-vessel coronary artery disease. 3. Hypertensive urgency. CONDITION OF THE PATIENT ON THE DAY OF DISCHARGE: Stable. I assessed Ms. Morris on the day of discharge. She denies any chest pain or shortness of breath. Vital signs are stable. S1 and S2 are heard, regular. Lungs are clear to auscultation bilaterally. DISCHARGE MEDICATIONS: 1. Aricept 5 mg daily. 2. Levothyroxine 88 mcg daily. 3. Seroquel 50 mg at bedtime. 4. Crestor 20 mg daily. 5. Zoloft 200 mg daily. 6. Aspirin 81 mg daily. 7. Plavix 75 mg daily, new medication. 8. Toprol-XL 25 mg daily. 9. Procardia XL dose has been increased to 90 mg 2 times a day. HOSPITAL COURSE: Ms. Morris is a pleasant 84-year-old lady, who was admitted to [facility] for unstable angina. She was seen by Cardiology, Dr. Jimenez. She underwent cardiac catheterization. She was found to have left ventricular ejection fraction of 55% and 2-vessel CAD. She had heavily calcified tortuous RCA with 80% stenosis. Medical therapy was recommended. Her blood pressures were elevated during this hospitalization. Procardia dose has been increased. She is being discharged home in stable condition. She has been advised to check her blood pressure and heart rate 3 times a day and show the readings to her primary care provider. POST ACUTE CARE FOLLOWUP: Primary care provider in 3 to [address] Jimenez in 2 to 3 weeks. LABORATORY DATA: On February 21, she had sodium 140, potassium 4.2, blood urea nitrogen 42, and creatinine 1.32. White count 4100, hemoglobin 9.8, and platelet count 114,000. Fasting lipid profile showed triglycerides 121, cholesterol 205, LDL cholesterol 120, and HDL cholesterol 61. TSH was normal at 2.4026. Many thanks for allowing me to participate in your patient's care. Please feel free to contact me with any questions or concerns. DISCHARGE DESTINATION: Home. TIME SPENT: Total amount of time spent coordinating this discharge: 32 minutes. Job ID: [id number]
== END 2019-02-22 12:37 | disposition home or self-care (01) | DRG 287 ==
LOC: ERS 07:39 → 2SW 12:01 → OBSVTOIN 02-21 08:12
PROVIDERS: ADMIT Internal Medicine; ATTEND Internal Medicine
PROC: 4A023N7 Measurement of Cardiac Sampling and Pressure, Left Heart, Percutaneous Approach (ICD-10-PCS; principal; 2019-02-21)
PROC: B2151ZZ Fluoroscopy of Left Heart using Low Osmolar Contrast (ICD-10-PCS; 2019-02-21)
PROC: B2111ZZ Fluoroscopy of Multiple Coronary Arteries using Low Osmolar Contrast (ICD-10-PCS; 2019-02-21)
DX: I25.110 Atherosclerotic heart disease of native coronary artery with unstable angina pectoris (principal); I16.0 Hypertensive urgency; I12.9 Hypertensive chronic kidney disease with stage 1 through stage 4 chronic kidney disease, or unspecified chronic kidney disease; N18.3 Chronic kidney disease, stage 3 (moderate); E03.9 Hypothyroidism, unspecified; E78.5 Hyperlipidemia, unspecified; F41.9 Anxiety disorder, unspecified; F32.9 Major depressive disorder, single episode, unspecified; E78.00 Pure hypercholesterolemia, unspecified; Z85.3 Personal history of malignant neoplasm of breast; Z88.1 Allergy status to other antibiotic agents; Z88.8 Allergy status to other drugs, medicaments and biological substances; Z79.899 Other long term (current) drug therapy; Z79.82 Long term (current) use of aspirin; Z87.891 Personal history of nicotine dependence; Z87.890 Personal history of sex reassignment; R41.0 Disorientation, unspecified
CPT/HCPCS: 36415; 71045; 76942; 80048; 80053; 80061; 82550; 82553; 83690; 83735; 83880; 84443; 84484; 85025; 93005; 93458; 96372; 96374; C1769; J1644; J1650; J2001; J2060; Q0162; Q9967; S0028

== ENCOUNTER 2019-07-01 13:31 | Emergency (ER) | payer MEDICARE, BC ==
[2019-07-01 14:52] LABS: #Eosinphils 0.2 thou/uL (0.0-0.7); #Lymphocytes 0.7 thou/uL (1.20-3.40); #Monocytes 0.5 thou/uL (0.11-0.59); #Neutrophils 4.7 thou/uL (1.40-6.50); %Basophils 0.4 % (0.0-1.0); %Eosinophils 2.8 % (0.0-10.0); %Lymphocytes 10.8 % (21.0-51.0); %Monocytes 7.8 % (0.0-10.0); %Neutrophils 78.2 % (42.0-75.0); Mean Corpuscular Hemoglobin 28.6 pg (27.0-31.0); Mean Corpuscular Volume 86.7 fL (78.0-98.0); Mean Platelet Volume 7.8 fL (7.4-10.4); Platelet Count 109 thou/uL (130-400); RBC Distribution Width 13.5 % (11.5-14.5); Red Blood Cell (RBC) Count 3.15 mill/uL (4.20-5.40); White Blood Cell (WBC) Count 6.1 thou/uL (4.8-10.8)
[2019-07-01 15:23] LABS: ALT (SGPT) 21 U/L (8-55); AST (SGOT) 21 U/L (5-34); Albumin 4.2 g/dL (3.4-4.8); Alkaline Phosphatase 63 U/L (40-110); Anion Gap 13 mmol/L (10-20); BUN (Urea Nitrogen) 66 mg/dL (9.8-20.1); Bilirubin, Total 0.4 mg/dL (0.2-1.2); CK (CPK) 45 U/L (29-168); Calc. Creatinine Clearance 0 mL/min (70-130); Calcium 9.5 mg/dL (7.8-10.44); Carbon Dioxide 23 mmol/L (23-31); Chloride 109 mmol/L (98-107); Estimated GFR-MDRD 26; Globulin 2.1 g/dL (2.4-3.5); Glucose 108 mg/dL (83-110); Potassium 4.4 mmol/L (3.5-5.1); Protein, Total 6.3 g/dL (6.0-8.3); Sodium 141 mmol/L (136-145)
--- NOTE | 2019-07-01 15:37 | RAD ---
PA AND LATERAL VIEWS OF THE CHEST: 07/01/19 HISTORY: Chest pain. COMPARISON: 02/20/19. The heart size is borderline. The aorta is tortuous. The lungs are expanded without lobar consolidati on, pneumothoraces, or pleural effusions. There are surgical clips in the left axilla. Bony structure s are stable. IMPRESSION: No radiographic evidence of acute cardiopulmonary process. POS: TPC
[2019-07-01] MEDS ORDERED: Acetaminophen 500 MG TAB ONE (16:32)
== END 2019-07-01 19:06 | disposition home or self-care (01) ==
LOC: ERS 13:31
DX: S20.212A Contusion of left front wall of thorax, initial encounter (principal); E03.9 Hypothyroidism, unspecified; E78.5 Hyperlipidemia, unspecified; I10 Essential (primary) hypertension; F41.9 Anxiety disorder, unspecified; F32.9 Major depressive disorder, single episode, unspecified; Z87.891 Personal history of nicotine dependence; Z79.82 Long term (current) use of aspirin; Z79.899 Other long term (current) drug therapy; X58.XXXA Exposure to other specified factors, initial encounter
CPT/HCPCS: 36415; 71046; 80053; 82550; 84484; 85025; 93005

== ENCOUNTER 2019-08-06 09:59 | Observation (INO) | payer MEDICARE, BC ==
[2019-08-06] MEDS ORDERED: Lorazepam 2 MG/ML VIAL ONE (10:11)
[2019-08-06 10:51] LABS: #Basophils 0.1 thou/uL (0.0-0.2); #Eosinphils 0.1 thou/uL (0.0-0.7); #Lymphocytes 1.3 thou/uL (1.20-3.40); #Monocytes 0.1 thou/uL (0.11-0.59); #Neutrophils 5.4 thou/uL (1.40-6.50); %Lymphocytes 18.8 % (21.0-51.0); %Monocytes 1.7 % (0.0-10.0); %Neutrophils 77.5 % (42.0-75.0); ALT (SGPT) 46 U/L (8-55); AST (SGOT) 36 U/L (5-34); Alkaline Phosphatase 85 U/L (40-110); Anion Gap 16 mmol/L (10-20); BUN (Urea Nitrogen) 53 mg/dL (9.8-20.1); Bilirubin, Total 0.4 mg/dL (0.2-1.2); CK (CPK) 61 U/L (29-168); Calc. Creatinine Clearance 0 mL/min (70-130); Calcium 9.2 mg/dL (7.8-10.44); Carbon Dioxide 22 mmol/L (23-31); Chloride 107 mmol/L (98-107); Estimated GFR-MDRD 28; Globulin 2.7 g/dL (2.4-3.5); Glucose 157 mg/dL (83-110); Hemoglobin 9.7 g/dL (12.0-16.0); Lipase 60 U/L (8-78); MDiff Complete? YES; Mean Corpuscular HGB CONC 33.5 g/dL (32.0-36.0); Mean Corpuscular Hemoglobin 28.9 pg (27.0-31.0); Mean Corpuscular Volume 86.5 fL (78.0-98.0); Mean Platelet Volume 7.8 fL (7.4-10.4); Platelet Count 115 thou/uL (130-400); Platelet Morphology Comment Appears Decreased; Potassium 4.1 mmol/L (3.5-5.1); Protein, Total 6.7 g/dL (6.0-8.3); RBC Distribution Width 13.8 % (11.5-14.5); Red Blood Cell (RBC) Count 3.36 mill/uL (4.20-5.40); Sodium 141 mmol/L (136-145); Tear Drops SLIGHT = 2-5 cells (100X) (0-1/hpf); White Blood Cell (WBC) Count 6.9 thou/uL (4.8-10.8)
[2019-08-06 10:55] LABS: Actual Bicarbonate (HCO3a) 22.3 mEq/L (22-28); Analyzer IN Cardio ER; Base Excess (BEa) -3.2 mEq/L (-2.0 to +3.0); CO2 Tension 41.9 mmHg (35.0-45.0); Calcium, Ionized 1.18 mmol/L (1.12-1.30); Carboxyhemoglobin (COHb) 0.3 gm% (0.0-3.0); Hemoglobin (Hb) 9.9 g/dL (12.0-16.0); O2 Tension (PaO2) 64.9 mmHg (> 60.0); pH, Arterial 7.34 (7.35-7.45)
[2019-08-06 10:56] LABS: ALV-art Gradient 82.365 (0-20); Puncture Site RRA
[2019-08-06 11:26] LABS: Bacteria/HPF None Seen HPF (None Seen); Bilirubin Negative (Negative); Blood, Urine Trace (Negative); Clarity Clear (Clear); Glucose, Urine (Dipstick) 70 mg/dL (Negative); Leukocyte Negative Leu/uL (Negative); Nitrite Negative (Negative); Protein, Urine (Dipstick) 70 mg/dL (Neg-Trace); RBC/HPF 0-3 HPF (0-3); Squamous Epithelial None Seen HPF (0-3); Urobilinogen Normal mg/dL (Less than 2); WBC/HPF None Seen HPF (0-3)
[2019-08-06] MEDS ORDERED: niCARdipine 20MG In NaCl 20 MG/200 ML BAG ONE (11:39)
--- NOTE | 2019-08-06 11:44 | RAD ---
CHEST 1 VIEW: Date: 08/06/2019 HISTORY: Altered mental status. COMPARISON: Chest radiograph dated 07/01/2019. FINDINGS: Heart size is enlarged. Large sliding hiatal hernia. No pneumothorax. No effusion. Compressive atelectasis left lung base. Old right-sided rib fractures. IMPRESSION: Chronic findings. No acute intrathoracic abnormality. POS: HOME
--- NOTE | 2019-08-06 12:17 | CT ---
BRAIN CT WITHOUT IV CONTRAST: Date: 08/06/2019 HISTORY: Fainting episode, dementia, altered mental status, Level II stroke. COMPARISON: 05/12/2018. FINDINGS: The patient is considerably rotated and cocked to the side with minimal motion artifact. No focal mas s or midline shift. No intra or extra-axial hemorrhage. No evidence for acute transcortical infarct. Appearance is not significantly changed from the prior study. IMPRESSION: Atrophy and chronic white matter ischemic changes. No mass or bleed. Findings discussed with Dr. Marques in the emergency room at 1035 hours. CODE CR.
[2019-08-06] MEDS ORDERED: Bacitracin 1 PK ONE (12:22)
[2019-08-06 12:58] LABS: CKMB 2.2 ng/mL (0-6.6)
[2019-08-06 15:27] LABS: Troponin I 0.123 ng/mL (< 0.028)
[2019-08-06] MEDS ORDERED: Labetalol HCl 100 MG/20 ML VIAL ONE (16:26)
[2019-08-06] MEDS ORDERED: Ondansetron PF 4 MG/2 ML Vial IVP PRN (17:22)
[2019-08-06] MEDS ORDERED: Ondansetron ODT 4 MG TAB SL PRN (17:22)
--- NOTE | 2019-08-06 18:42 | PDOC.HHP ---
Hospitalist HPI - History of Present Illness syncope History of Present Illness: This is an 84 year old female with past medical history of dementia who presented after syncopal episode. I am unable to obtain history from the patient. The patient reportedly had an event in her house where she stood up and passed out. There was no seizure like activity. Patient was confused afterwards and not able to follow commands therefore she was brought to the hospital. Patient is at baseline oriented times four. Patient denies cough, shortness of breath, chest pain ED Course: Upon arrival to the ER, patient had ab lood pressure of > 200 systolic. IT is unknown whether she is compliant with her medications. She was started on nicardipine drip briefly in the ER, but her blood pressure quickly dropped to 130 so it was stopped. Patient failed swallow evaluation in the ER, so was given IV labetalol 20 mg IV. EKG showed some T wave inversions in V4-V6. The patient had a CT head which showed no acute disease, chest X ray unremarkable. Labs remarkable for creatinine of 1.7 which is baseline, TSH of 8. Patient admitted for acute encephalopath Hospitalist ROS - Review of Systems Constitutional: denies: fever, chills Respiratory: denies: cough, dry Cardiovascular: denies: chest pain, palpitations Gastrointestinal: denies: nausea, vomiting Hospitalist History - Past Medical History Cardiac: reports: HTN Endocrine: reports: Hypothyroidism Other Medical History: Dementia Hyperlipidemia - Past Surgical History Past Surgical History: reports: Appendectomy Other Surgical History: Left breast mastectomy - Family History Other Family History: unable to obtain - Social History Smoking Status: Unknown if ever smoked Alcohol: reports: Occassional Drugs: reports: none - Exam General Appearance: NAD General - other findings: drowsy, difficulty in arousing and difficulty following commands Eye: PERRL, anicteric sclera ENT: normocephalic atraumatic, no oropharyngeal lesions Neck: supple, no JVD Heart: RRR, no murmur, no gallops, no rubs Respiratory: CTAB, no wheezes, no rales, no ronchi Gastrointestinal: soft, non-tender, non-distended, normal bowel sounds Extremities: no cyanosis, no clubbing, no edema Skin: normal turgor, no lesions, no rashes Neurological: cranial nerve grossly intact, normal sensation to touch, no focal deficits, no new deficit Musculoskeletal: normal tone, normal strength, no muscle wasting Psychiatric: normal affect, normal behavior, A&O x 3 Hospitalist Results - Labs Result Diagrams: 08/06/19 10:17 08/06/19 10:17 Lab results: WBC 6.9 thou/uL (4.8-10.8) 08/06/19 10:17 Hgb 9.7 g/dL (12.0-16.0) L 08/06/19 10:17 Hct 29.0 % (36.0-47.0) L 08/06/19 10:17 MCV 86.5 fL (78.0-98.0) 08/06/19 10:17 Plt Count 115 thou/uL (130-400) L 08/06/19 10:17 Neutrophils % 77.5 % (42.0-75.0) H 08/06/19 10:17 ABG pH 7.34 (7.35-7.45) L 08/06/19 10:37 ABG pCO2 41.9 mmHg (35.0-45.0) 08/06/19 10:37 ABG pO2 64.9 mmHg (> 60.0) H 08/06/19 10:37 Sodium 141 mmol/L (136-145) 08/06/19 10:17 Potassium 4.1 mmol/L (3.5-5.1) 08/06/19 10:17 Chloride 107 mmol/L (98-107) 08/06/19 10:17 Carbon Dioxide 22 mmol/L (23-31) L 08/06/19 10:17 BUN 53 mg/dL (9.8-20.1) H 08/06/19 10:17 Creatinine 1.73 mg/dL (0.6-1.1) H 08/06/19 10:17 Glucose 157 mg/dL (83-110) H 08/06/19 10:17 Calcium 9.2 mg/dL (7.8-10.44) 08/06/19 10:17 Total Bilirubin 0.4 mg/dL (0.2-1.2) 08/06/19 10:17 AST 36 U/L (5-34) H 08/06/19 10:17 ALT 46 U/L (8-55) 08/06/19 10:17 Alkaline Phosphatase 85 U/L (40-110) 08/06/19 10:17 Ammonia 18 umol/L (18-72) 08/06/19 10:20 Creatine Kinase 61 U/L (29-168) 08/06/19 10:17 CK-MB (CK-2) 2.2 ng/mL (0-6.6) 08/06/19 10:17 Troponin I 0.160 ng/mL (< 0.028) H 08/06/19 17:48 Serum Total Protein 6.7 g/dL (6.0-8.3) 08/06/19 10:17 Albumin 4.0 g/dL (3.4-4.8) 08/06/19 10:17 Lipase 60 U/L (8-78) 08/06/19 10:17 Urine Ketones Negative mg/dL (Negative) 08/06/19 11:09 Urine Blood Trace (Negative) A 08/06/19 11:09 Urine Nitrite Negative (Negative) 08/06/19 11:09 Ur Leukocyte Esterase Negative [place]/uL (Negative) 08/06/19 11:09 Urine RBC 0-3 HPF (0-3) 08/06/19 11:09 Urine WBC None Seen HPF (0-3) 08/06/19 11:09 Ur Squamous Epith Cells None Seen HPF (0-3) 08/06/19 11:09 Urine Bacteria None Seen HPF (None Seen) 08/06/19 11:09 - EKG Interpretation EKG: left atrial enlargemenet. T wave inversions V4-V6 Hospitalist H&P A/P - Plan Plan: CT head: atrophy and chronic white matter ischemic changes. No mass or bleed Chest X ray: no acute abnormality This is an 84 year old female with past medical history of dementia who presented after a syncopal event, also had uncontrolled blood pressure Acute encephalopathy possibly related to uncontrolled hypertension Syncope S/p fall - will start clonidine patch for now given inability to take po - resume all home meds when safe to take po - IV labetalol and hydralazine prn - troponin elevated, likely from hypertension. Will check ECHO given syncope Hypothyroidism - resume levothyroxine - check free T4 Anemia - Hemoglobin 9.7 - check folate and B12 in the morning - TSH elevated, check free T4 Dementia - resume donepezil CAD -resume aspirin and plavix Codee status:full code
[2019-08-06] MEDS ORDERED: hydrALAZINE 20 MG/ML VIAL SLOW IVP PRN (18:43)
[2019-08-06] MEDS ORDERED: Labetalol HCl 100 MG/20 ML VIAL SLOW IVP PRN (18:44)
[2019-08-06] MEDS ORDERED: cloNIDine 0.1mg/24 Hour PATCH TD SCH (20:00)
[2019-08-06] MEDS: NIFEdipine XL 60 MG TAB PO SCH (20:58)
[2019-08-07] MEDS: Levothyroxine Sodium 88 MCG TAB PO SCH (05:12)
[2019-08-07 05:33] LABS: Mean Corpuscular HGB CONC 33.2 g/dL (32.0-36.0); Mean Corpuscular Hemoglobin 28.8 pg (27.0-31.0); Mean Corpuscular Volume 86.9 fL (78.0-98.0); Mean Platelet Volume 7.8 fL (7.4-10.4); Platelet Count 95 thou/uL (130-400); RBC Distribution Width 13.8 % (11.5-14.5); Red Blood Cell (RBC) Count 3.13 mill/uL (4.20-5.40); White Blood Cell (WBC) Count 4.5 thou/uL (4.8-10.8)
[2019-08-07 05:39] LABS: Anion Gap 12 mmol/L (10-20); BUN (Urea Nitrogen) 42 mg/dL (9.8-20.1); Calc. Creatinine Clearance 20 mL/min (70-130); Calcium 9.5 mg/dL (7.8-10.44); Carbon Dioxide 25 mmol/L (23-31); Chloride 109 mmol/L (98-107); Estimated GFR-MDRD 30; Glucose 92 mg/dL (83-110); Potassium 3.9 mmol/L (3.5-5.1); Sodium 142 mmol/L (136-145)
[2019-08-07] MEDS ORDERED: Prevnar 13-Val Conj/PF 0.5 ML SYRINGE IM ONE (09:00)
[2019-08-07] MEDS: Isosorbide Mononitrate (ER) 30 MG TAB PO SCH (09:20)
[2019-08-07] MEDS: Rosuvastatin 20 MG TAB PO SCH (09:20)
[2019-08-07] MEDS: Clopidogrel Bisulfate 75 MG TAB PO SCH (09:20)
[2019-08-07] MEDS: Aspirin 81 mg Enteric Coated Tablet PO SCH (09:21)
[2019-08-07] MEDS: Ferrous Sulfate 325 MG TAB PO SCH (09:21)
[2019-08-07] MEDS: Vitamin E 400 UNITS CAP PO SCH (09:21)
[2019-08-07 10:51] VITALS: BMI 18.0
--- NOTE | 2019-08-07 16:29 | PDOC.HOSPP ---
- Subjective Encounter Date: 08/07/19 Encounter Time: 09:30 Subjective: the patient is more alert today. Speech was able to advance her diet slightly today. BP was 190 overnight, she didn't get any prn meds overnight, just the clonidine patch. BP this morning was 140. Clonidine patch removed and patient received her am imdur, BP well controlled now - Objective Vital Signs & Weight: Vital Signs (12 hours) Temp Pulse Pulse Pulse Pulse Resp BP 08/07/19 12:35 98.4 F 75 16 08/07/19 11:09 82 80 81 132/64 08/07/19 10:37 08/07/19 08:14 98.0 F 77 18 08/07/19 06:59 74 BP BP BP BP BP BP Pulse Ox 08/07/19 12:35 147/70 H 95 08/07/19 11:09 132/62 142/70 H 08/07/19 10:37 117/59 L 116/62 123/59 L 08/07/19 08:14 142/85 H 98 08/07/19 06:59 173/84 H Weight Admit Weight 104 lb 1.6 oz Weight 105 lb I&O: 08/06/19 08/07/19 08/08/19 06:59 06:59 06:59 Intake Total 240 Output Total 400 Balance -160 Result Diagrams: 08/07/19 05:04 08/07/19 05:04 Hospitalist ROS - Review of Systems Constitutional: denies: fever, chills - Medication Medications: Active Medications Generic Name Dose Route Start Last Admin Trade Name Freq PRN Reason Stop Dose Admin Aspirin 81 mg 08/07/19 09:00 08/07/19 09:21 Ecotrin PO 81 mg DAILY MARILYNN Administration Clopidogrel Bisulfate 75 mg 08/07/19 09:00 08/07/19 09:20 Plavix PO 75 mg DAILY MARILYNN Administration Ferrous Sulfate 325 mg 08/07/19 09:00 08/07/19 09:21 Feosol PO 325 mg DAILY MARILYNN Administration Isosorbide Mononitrate 30 mg 08/07/19 09:00 08/07/19 09:20 Imdur Er PO 30 mg QAM MARILYNN Administration Levothyroxine Sodium 88 mcg 08/07/19 06:00 08/07/19 05:12 Synthroid PO 88 mcg 0600 MARILYNN Administration Metoprolol Succinate 50 mg 08/06/19 21:00 08/06/19 20:58 Toprol Xl PO 50 mg BID MARILYNN Administration Nifedipine 60 mg 08/06/19 21:00 08/06/19 20:58 Procardia Xl PO 60 mg BID MARILYNN Administration Quetiapine Fumarate 50 mg 08/06/19 21:00 08/06/19 20:58 Seroquel PO 50 mg HS MARILYNN Administration Rosuvastatin Calcium 20 mg 08/07/19 09:00 08/07/19 09:20 Crestor PO 20 mg DAILY MARILYNN Administration Sertraline HCl 200 mg 08/07/19 09:00 08/07/19 09:21 Zoloft PO 200 mg DAILY MARILYNN Administration Vitamin E 400 units 08/07/19 09:00 08/07/19 09:21 Vitamin E PO 400 units DAILY MARILYNN Administration - Exam General Appearance: NAD, awake alert Eye: PERRL, anicteric sclera ENT: normocephalic atraumatic, no oropharyngeal lesions Neck: supple, symmetric, no JVD, no thyromegaly Heart: RRR, no murmur, no gallops, no rubs Respiratory: CTAB, no wheezes, no rales, no ronchi Gastrointestinal: soft, non-tender, non-distended, normal bowel sounds Extremities: no cyanosis, no clubbing, no edema Skin: normal turgor, no lesions, no rashes Neurological: cranial nerve grossly intact, normal sensation to touch, no focal deficits, no new deficit Hosp A/P - Plan ECHO: EF45-50%, LA moderately dilated CT head: atrophy and chronic white matter ischemic changes. No mass or bleed Chest X ray: no acute abnormality This is an 84 year old female with past medical history of dementia who presented after a syncopal event, also had uncontrolled blood pressure Acute encephalopathy possibly related to uncontrolled hypertension Syncope S/p fall -d/c clonidine patch. Orthostatics negative - resumed imdur this am. Scheduled to get nifedipine and metoprolol tonight, patient did not get those this morning - will re-evaluate blood pressure over 24 hour period to assess d/c meds better - troponin elevated, ECHO shows no wall motion abnormalities, EF 45-50% Hypothyroidism - continue levothyroxine - free T4 normal Anemia - Hemoglobin 9.7 - B12 and folate normal Dementia - continue donepezil CAD -resume aspirin and plavix
[2019-08-07] MEDS: NIFEdipine XL 60 MG TAB PO SCH ×2 (20:22→22:15)
[2019-08-08 05:02] LABS: Mean Corpuscular HGB CONC 34.3 g/dL (32.0-36.0); Mean Corpuscular Hemoglobin 29.7 pg (27.0-31.0); Mean Corpuscular Volume 86.5 fL (78.0-98.0); Mean Platelet Volume 7.6 fL (7.4-10.4); Platelet Count 94 thou/uL (130-400); RBC Distribution Width 13.5 % (11.5-14.5); Red Blood Cell (RBC) Count 2.69 mill/uL (4.20-5.40); White Blood Cell (WBC) Count 4.1 thou/uL (4.8-10.8)
[2019-08-08] MEDS: Levothyroxine Sodium 88 MCG TAB PO SCH (05:20)
[2019-08-08 05:21] LABS: Anion Gap 13 mmol/L (10-20); BUN (Urea Nitrogen) 49 mg/dL (9.8-20.1); Calc. Creatinine Clearance 17 mL/min (70-130); Calcium 9.1 mg/dL (7.8-10.44); Carbon Dioxide 22 mmol/L (23-31); Chloride 107 mmol/L (98-107); Estimated GFR-MDRD 25; Glucose 86 mg/dL (83-110); Potassium 3.9 mmol/L (3.5-5.1); Sodium 138 mmol/L (136-145)
[2019-08-08] MEDS: NIFEdipine XL 60 MG TAB PO SCH ×2 (07:49→08:11)
[2019-08-08] MEDS: Donepezil HCl 10 MG TAB PO SCH ×2 (07:49→08:13)
[2019-08-08] MEDS: Vitamin E 400 UNITS CAP PO SCH (08:11)
[2019-08-08] MEDS: Rosuvastatin 20 MG TAB PO SCH (08:11)
[2019-08-08] MEDS: Isosorbide Mononitrate (ER) 30 MG TAB PO SCH (08:11)
[2019-08-08] MEDS: Aspirin 81 mg Enteric Coated Tablet PO SCH (08:11)
[2019-08-08] MEDS: Ferrous Sulfate 325 MG TAB PO SCH (08:12)
[2019-08-08] MEDS: Clopidogrel Bisulfate 75 MG TAB PO SCH (08:12)
--- NOTE | 2019-08-08 10:55 | PDOC.HOSPP ---
- Subjective Encounter Date: 08/08/19 Encounter Time: 07:30 Subjective: Patient is more alert today. Her blood pressure was high 190 overnight. She was given IV hydralazine this am at 7:30 . Nifedipine and imdur given with improvement in blood pressure to 130 I spoke with grand-daughter. She states patient is not likely compliant with her medication and does have dementia and gets confused a lot. Explained to grand-daughter that this could be worsening of her dementia with possible component of delirium which could be made worst the longer she is in the hospital. Per grand-daughter, the patient is not able to recognize her the past two days which is not her baseline. Patient follows commands and has no neuro deficits, but does not answer questions appropriately or make eye contact appropriately while talking and still confused. Grand-daughter agreeable to looking into home health services but requested I speak to the son first. I spoke to son who states patient does not take her medications either and is not sure why she was found down on the ground or what happened. Son is not able to care for the patient due to broken limb and he is wheelchair bound. He states that patient has an assisted living facility but has been refusing to go there and he is unable to get her moved in there due to coronavirus lockdown. He is requesting rehab. PT recommended 24 hour care Per nursing she is eating pureed but not much - Objective Vital Signs & Weight: Vital Signs (12 hours) Temp Pulse Pulse Pulse Resp BP BP 08/08/19 08:39 83 86 130/76 138/68 08/08/19 08:10 08/08/19 07:09 97.5 F L 75 18 08/08/19 03:42 97.4 F L 77 18 08/07/19 23:34 BP BP Pulse Ox 08/08/19 08:39 08/08/19 08:10 166/78 H 08/08/19 07:09 190/85 H 96 08/08/19 03:42 151/74 H 93 L 08/07/19 23:34 176/81 H Weight Admit Weight 104 lb 1.6 oz Weight 104 lb I&O: 08/07/19 08/08/19 08/09/19 06:59 06:59 06:59 Intake Total 240 915 Output Total 400 400 Balance -160 515 Result Diagrams: 08/08/19 04:49 08/08/19 04:48 Hospitalist ROS - Review of Systems Constitutional: denies: fever, chills - Medication Medications: Active Medications Generic Name Dose Route Start Last Admin Trade Name Kingq PRN Reason Stop Dose Admin Aspirin 81 mg 08/07/19 09:00 08/08/19 08:11 Ecotrin PO 81 mg DAILY MARILYNN Administration Clopidogrel Bisulfate 75 mg 08/07/19 09:00 08/08/19 08:12 Plavix PO 75 mg DAILY MARILYNN Administration Donepezil HCl 10 mg 08/07/19 09:00 08/08/19 08:13 Aricept PO 10 mg QAM MARILYNN Administration Ferrous Sulfate 325 mg 08/07/19 09:00 08/08/19 08:12 Feosol PO 325 mg DAILY MARILYNN Administration Hydralazine HCl 10 mg 08/06/19 18:43 08/08/19 07:22 Apresoline SLOW IVP 10 mg Q4H PRN Administration SBP Greater Than 180 Isosorbide Mononitrate 30 mg 08/07/19 09:00 08/08/19 08:11 Imdur Er PO 30 mg QAM [facility] Administration Levothyroxine Sodium 88 mcg 08/07/19 06:00 08/08/19 05:20 Synthroid PO 88 mcg 0600 [facility] Administration Metoprolol Succinate 50 mg 08/06/19 21:00 08/08/19 08:13 Toprol Xl PO Not Given BID [facility] Nifedipine 60 mg 08/06/19 21:00 08/08/19 08:11 Procardia Xl PO 60 mg BID MARILYNN Administration Quetiapine Fumarate 50 mg 08/06/19 21:00 08/07/19 20:22 Seroquel PO 50 mg HS MARILYNN Administration Rosuvastatin Calcium 20 mg 08/07/19 09:00 08/08/19 08:11 Crestor PO 20 mg DAILY [facility] Administration Sertraline HCl 200 mg 08/07/19 09:00 08/08/19 08:14 Zoloft PO 200 mg DAILY MARILYNN Administration Vitamin E 400 units 08/07/19 09:00 08/08/19 08:11 Vitamin E PO 400 units DAILY MARILYNN Administration - Exam General Appearance: NAD, awake alert Eye: PERRL, anicteric sclera ENT: normocephalic atraumatic, no oropharyngeal lesions Neck: supple, symmetric, no JVD Heart: RRR, no murmur, no gallops, no rubs, normal peripheral pulses Respiratory: CTAB, no wheezes, no rales, no ronchi Gastrointestinal: soft, non-tender, non-distended, normal bowel sounds Extremities: no cyanosis, no clubbing, no edema Skin: normal turgor, no lesions, no rashes Neurological: cranial nerve grossly intact, normal sensation to touch, no focal deficits, no new deficit Neurological - other findings: not oriented. 5/5 strength in upper and lower extremities Musculoskeletal: normal tone, normal strength, no muscle wasting Psychiatric: normal affect, normal behavior, A&O x 3 Hosp A/P - Plan ECHO: EF45-50%, LA moderately dilated CT head: atrophy and chronic white matter ischemic changes. No mass or bleed Chest X ray: no acute abnormality This is an 84 year old female with past medical history of dementia who presented after a syncopal event, also had uncontrolled blood pressure Acute encephalopathy related to uncontrolled hypertension vs worsening dementia Syncope S/p fall - Orthostatics negative. Encephalopathy improved with BP control - her home meds have been resumed with adequate control of her blood pressure - troponin elevated, ECHO shows no wall motion abnormalities, EF 45-50% - PT evaluated patient, recommended home with 24 hour care. Son requesting rehab placement due to advanced dementia and difficulty caring for her. Case management consult placed Hypothyroidism - continue levothyroxine - free T4 normal Anemia - Hemoglobin 9.7 - B12 and folate normal Dementia - continue donepezil CAD -resume aspirin and plavix
[2019-08-08 15:31] VITALS: BP 136/65; TEMP 97.6
--- NOTE | 2019-08-08 15:48 | DIS ---
DATE OF ADMISSION: 08/06/2019 DATE OF DISCHARGE: 08/08/2019 DISCHARGE DIAGNOSES: 1. Acute encephalopathy secondary to uncontrolled hypertension versus worsening dementia. 2. Syncope. 3. Status post fall. 4. Anemia. 5. Chronic kidney disease stage 4 to 5. 6. Type 2 [id number] myocardial infarction. CONSULTATIONS: None. PROCEDURES: None. BRIEF HISTORY OF PRESENT ILLNESS: This is an 84-year-old female with a past medical history of dementia, who had presented after a syncopal episode. I was unable to take history from the patient on admission. However, she reportedly had an event in her house, where she stood up and she passed out. There was no concern for seizure. The patient was altered and brought to the hospital. Her blood pressure was noted to be greater than 200 systolic. She had mild T-wave inversions in her EKG and V4 to V6. She was initially started on nicardipine drip in the ER. However, this was stopped when her blood pressure dropped to 130. She had a CT scan of her head, which was normal. She was admitted for further workup. HOSPITAL COURSE: Acute encephalopathy secondary to uncontrolled hypertension: Delirium vs worsening dementia Initially, the patient was unable to take any p.o. medications due to altered mental status. She was started on clonidine patch with improvement in her blood pressure. On the , her blood pressure had dropped to 130, so her outpatient medications were slowly re-initiated. She was monitored for 24 hours. Her blood pressure increased to the 190s overnight and with resumption of her outpatient metoprolol , Imdur, nifedipine, her blood pressure was adequately controlled and is 144 on the day of discharge. Her encephalopathy has resolved; however, she is confused and still does not recognize her granddaughter. She does follow commands, but does not answer questions coherently. She does not have any focal neurological deficits to suggest stroke. Her UA shows no evidence of UTI. After discussion with her granddaughter and her son, it was decided that she could be having delirium from worsening dementia. The son wanted to place her in rehab since he is unable to take care of her and monitor her 24 hours. She was seen by Physical Therapy and Case Management and will be discharged to [facility]. Syncope status post fall: The patient had troponins that were trended, which peaked at 0.160. She had an echocardiogram done, which showed no wall motion abnormalities and an EF of 45% to 50%. PT evaluated her and thought she was independent with a walker. She will be discharged to rehab. DISCHARGE PHYSICAL EXAMINATION: VITAL SIGNS: Temperature 98.6, heart rate 76, respiratory rate 18, O2 saturation 96% on room air, and blood pressure 144/66. GENERAL: The patient is alert. She is oriented x1. She does not make good eye contact while talking and is incoherent with her sentences. She does not recognize her family member. NEUROLOGICAL: Cranial nerves 2 through 12 are intact. She has equal strength in all 4 extremities and intact sensation in all 4 extremities. There is no facial droop. CVS: Regular rate and rhythm with no murmurs, rubs, or gallops. LUNGS: Clear to auscultation bilaterally. ABDOMEN: Positive bowel sounds, soft, nontender, nondistended. EXTREMITIES: No edema. LABORATORY DATA: CBC on 08/07: White blood cell count 4.1, hemoglobin 8.0, hematocrit 23.3, platelet count 94. BMP on 08/07: Shows a creatinine of 1.91. The patient does have a creatinine that seems to range from 1.4 to 2 at baseline. LFTs on 08/05: AST 36, ALT 46, alkaline phosphatase 85. Troponin I: 0.131, 0.123, 0.137. Vitamin B12: 443. Folate: 13. TSH: 8.13. Free T4: 0.88. UA on 08/05: Shows 70 protein, 70 glucose, trace blood. IMAGING STUDIES: Echo on 08/06: EF 45% to 50%. Mild MR. Trace TR. Small pericardial effusion. CT brain on 08/05: Atrophy and chronic white matter ischemic changes. No mass or bleed. Chest x-ray on 08/05: Heart size is enlarged. Compressive atelectasis of the left lung base. DISPOSITION: [facility]. DISCHARGE CONDITION: Stable. DIET: Heart healthy diet with a 2 L fluid restriction. DISCHARGE MEDICATIONS: 1. Donepezil 10 mg p.o. q.a.m. 2. Iron 65 mg p.o. daily. 3. Imdur 30 mg p.o. q.a.m. 4. Levothyroxine 88 mcg p.o. q.a.m. 5. Metoprolol 50 mg p.o. b.i.d. 6. Nifedipine 60 mg p.o. b.i.d. 7. Seroquel 50 mg p.o. at bedtime. 8. Crestor 20 mg p.o. daily. 9. Sertraline 200 mg p.o. daily. 10. Vitamin E 450 mg p.o. daily. 11. Aspirin 81 mg p.o. daily. 12. Plavix 75 mg p.o. daily. DISCHARGE INSTRUCTIONS: The patient should follow up with her PCP in a week and consider seeing a washer meat for systolic heart failure. She should have repeat CBC to follow up her leukopenia and anemia and thrombocytopenia. Job ID: [id number] MTDD
[2019-08-09] MEDS ORDERED: Rosuvastatin 10 MG TAB PO SCH (09:00)
== END 2019-08-08 19:00 ==
LOC: ERS 09:59 → 2NO 14:13
PROVIDERS: ADMIT Internal Medicine; ATTEND Internal Medicine
DX: G93.40 Encephalopathy, unspecified (principal); R55 Syncope and collapse; D64.9 Anemia, unspecified; I12.0 Hypertensive chronic kidney disease with stage 5 chronic kidney disease or end stage renal disease; N18.5 Chronic kidney disease, stage 5; I21.A1 Myocardial infarction type 2; E03.9 Hypothyroidism, unspecified; F03.90 Unspecified dementia, unspecified severity, without behavioral disturbance, psychotic disturbance, mood disturbance, and anxiety; I25.10 Atherosclerotic heart disease of native coronary artery without angina pectoris; I10 Essential (primary) hypertension; E78.5 Hyperlipidemia, unspecified; I48.91 Unspecified atrial fibrillation; Z79.02 Long term (current) use of antithrombotics/antiplatelets; Z79.82 Long term (current) use of aspirin; Z79.899 Other long term (current) drug therapy; Z88.0 Allergy status to penicillin; Z88.8 Allergy status to other drugs, medicaments and biological substances; W19.XXXA Unspecified fall, initial encounter; Y92.009 Unspecified place in unspecified non-institutional (private) residence as the place of occurrence of the external cause
CPT/HCPCS: 51701; 70450; 71045; 80048 ×2; 82140; 82550; 82553 ×2; 82607; 82746; 82805; 82962; 83690; 84439; 84484 ×3; 85027 ×2; 93005; 93306; 96374; 96375 ×2; 97110; 97116 ×2; 97139 ×2; 99291; 99292; G0378 ×4; J0360; J2060; 36415; 36416; 80053; 81003; 81015; 84443; 85025; A4353

== ENCOUNTER 2019-08-23 15:20 | Inpatient (IN) | payer MEDICARE, BC ==
--- NOTE | 2019-08-23 15:58 | RAD ---
RADIOGRAPH CHEST 1 VIEW: DATE: 08/23/2019 HISTORY: 84-year-old female with chest pain COMPARISON: 08/06/2019 FINDINGS: The thoracic aorta is tortuous and ectatic. There is no evidence of airspace density, pulmonary edema , or pneumothorax. The lateral costophrenic angles are not effaced. The midline retrocardiac mass representing herniated portion of stomach, is unchanged. No interval change overall. IMPRESSION: 1) No acute pulmonary findings. 2) ectasia of thoracic aorta. 3) moderate size hiatal hernia
[2019-08-23 16:18] LABS: #Eosinphils 0.1 thou/uL (0.0-0.7); #Lymphocytes 1.1 thou/uL (1.20-3.40); #Monocytes 0.3 thou/uL (0.11-0.59); #Neutrophils 3.8 thou/uL (1.40-6.50); %Basophils 0.3 % (0.0-1.0); %Eosinophils 2.3 % (0.0-10.0); %Lymphocytes 19.9 % (21.0-51.0); %Monocytes 6.4 % (0.0-10.0); %Neutrophils 71.1 % (42.0-75.0); Hemoglobin 6.1 g/dL (12.0-16.0); Mean Corpuscular HGB CONC 34.2 g/dL (32.0-36.0); Mean Corpuscular Hemoglobin 29.9 pg (27.0-31.0); Mean Corpuscular Volume 87.3 fL (78.0-98.0); Mean Platelet Volume 8.4 fL (7.4-10.4); Platelet Count 106 thou/uL (130-400); RBC Distribution Width 14.2 % (11.5-14.5); Red Blood Cell (RBC) Count 2.03 mill/uL (4.20-5.40); White Blood Cell (WBC) Count 5.4 thou/uL (4.8-10.8)
[2019-08-23 16:34] LABS: ALT (SGPT) 14 U/L (8-55); AST (SGOT) 14 U/L (5-34); Albumin 3.4 g/dL (3.4-4.8); Alkaline Phosphatase 55 U/L (40-110); Anion Gap 17 mmol/L (10-20); BUN (Urea Nitrogen) 118 mg/dL (9.8-20.1); Bilirubin, Total 0.4 mg/dL (0.2-1.2); CK (CPK) 24 U/L (29-168); Calc. Creatinine Clearance 0 mL/min (70-130); Calcium 8.4 mg/dL (7.8-10.44); Carbon Dioxide 20 mmol/L (23-31); Chloride 109 mmol/L (98-107); Estimated GFR-MDRD 21; Glucose 115 mg/dL (83-110); Potassium 4.5 mmol/L (3.5-5.1); Protein, Total 5.4 g/dL (6.0-8.3); Sodium 141 mmol/L (136-145)
[2019-08-23 16:55] LABS: CKMB 1.2 ng/mL (0-6.6)
[2019-08-23 18:26] LABS: PTT 24.7 SEC (22.9-36.1)
[2019-08-23] MEDS ORDERED: Acetaminophen 650 MG Suppository PR PRN (18:41)
[2019-08-23] MEDS ORDERED: Acetaminophen 325 MG TAB PO PRN (18:41)
--- NOTE | 2019-08-23 19:11 | PDOC.HHP ---
Hospitalist HPI - History of Present Illness Per EMS, called out for Seizure, patient c/o CP History of Present Illness: Per EMS patient reportedly had a seizure, on arrival she was complaining of chest pain. Was admitted recently after a syncopal episode/fall with acute encephalopathy due to uncontrolled HTN, worsening dementia, Anemia, and type 2 NSTEMI. En route to the ED she was given Nitro and 324 mg of Aspirin. Unable to obtain history from patient due to dementia. She is aware she is in the hospital and believes she has been here for several days. Thinks she is in [place]. Denies any complaints except stating that her BP has been high. She is repetitive with regards to her BP despite reassuring her that it is actually on the low side at 114 systolic. ED Course: In the ED she had labs done including Trop 1, indeterminate at 0.039. CKMB 1.2, CK 24, Na+ 141, K+ 4.5, BUN 118, Creat 2.23, GFR 21 WCC 5.4, Hgb 6.1, Platelets 106, Neutrophils 71.1% CXR 1) No acute pulmonary findings. 2) ectasia of thoracic aorta. 3) moderate size hiatal hernia EKG done in ED unremarkable. Hospitalist ROS - Review of Systems ROS unobtainable: due to mental status (Patient denies any complaints at present. Does have underlying dementia, therefore not reliable historian.) Genitourinary: reports: other - Medication Medications: ALLERGIES: amoxicillin trihydrate (Unconfirmed), amoxicillin, atorvastatin ( Unconfirmed), eszopiclone, Lipitor, potassium clavulanate (Unconfirmed), simvastatin CURRENT MEDICATIONS: levothyroxine oral TABLET : Strength - 88 mcg : ORAL Patient Dose: 88 mcg Oral once a day (in the morning). aspirin oral TABLET : Strength - 81 mg : ORAL Patient Dose: 81 mg Oral once a day. sertraline TABLET : Strength - 100 mg : ORAL Patient Dose: 200 mg Oral once a day. QUEtiapine TABLET : Strength - 50 mg : ORAL Patient Dose: 1 tab(s) Oral once a day (at bedtime). isosorbide mononitrate TABLET, EXTENDED RELEASE 24 HR : Strength - 30 mg : ORAL Patient Dose: 1 tab(s) Oral once a day. metoprolol tartrate oral TABLET : Strength - 50 mg : ORAL Patient Dose: 2 tab(s) Oral 2 times a day. NIFEdipine TABLET, EXTENDED RELEASE : Strength - 30 mg : ORAL Patient Dose: 2 tab(s) Oral once a day. Crestor TABLET : Strength - 20 mg : ORAL Patient Dose: 20 mg Oral once a day. vitamin E tablet TABLET : Strength - 400 unit : ORAL Patient Dose: 400 units Oral once a day. donepezil TABLET : Strength - 5 mg : ORAL Patient Dose: 2 tab(s) Oral once a day. Plavix TABLET : Strength - 75 mg : ORAL Patient Dose: 75 mg Oral once a day. ferrous sulfate tablet : Strength - 325 mg (65 mg iron) : ORAL Patient Dose: 1 tab(s) Oral once a day. 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 Heme/Onc: reports: Cancer (Breast cancer) Psych: reports: Anxiety, Depression Endocrine: reports: Hypothyroidism - Past Surgical History Past Surgical History: reports: Appendectomy, Mastectomy (left breast) - Family History Family History: reports: no pertinent history - Social History Smoking Status: Former smoker Alcohol: reports: Rare Drugs: reports: none Living Situation: Snf - Exam General Appearance: NAD, awake alert General - other findings: Patient apepars thin, resting comfortably Eye: PERRL, anicteric sclera ENT: dry oral mucosa Neck: supple, no lymphadenopathy Heart: RRR, normal peripheral pulses Respiratory: CTAB, normal chest expansion, no tachypnea Gastrointestinal: soft Extremities: no edema Skin: tenting Neurological: cranial nerve grossly intact, no weakness Neurological - other findings: Confused but no slurred speech Musculoskeletal: normal strength, no muscle wasting Psychiatric: normal affect, oriented to person Hospitalist Results - Labs Result Diagrams: 08/23/19 16:02 08/23/19 16:02 Lab results: WBC 5.4 thou/uL (4.8-10.8) 08/23/19 16:02 Hgb 6.1 g/dL (12.0-16.0) L 08/23/19 16:02 Hct 17.8 % (36.0-47.0) L 08/23/19 16: MCV 87.3 fL (78.0-98.0) 08/23/19 16:02 Plt Count 106 thou/uL (130-400) L 08/23/19 16:02 Neutrophils % 71.1 % (42.0-75.0) 08/23/19 16:02 Sodium 141 mmol/L (136-145) 08/23/19 16:02 Potassium 4.5 mmol/L (3.5-5.1) 08/23/19 16:02 Chloride 109 mmol/L (98-107) H 08/23/19 16:02 Carbon Dioxide 20 mmol/L (23-31) L 08/23/19 16:02 BUN 118 mg/dL (9.8-20.1) H 08/23/19 16:02 Creatinine 2.23 mg/dL (0.6-1.1) H 08/23/19 16:02 Glucose 115 mg/dL (83-110) H 08/23/19 16:02 Lactic Acid 0.8 mmol/L (0.5-2.2) 08/23/19 18:05 Calcium 8.4 mg/dL (7.8-10.44) 08/23/19 16:02 Total Bilirubin 0.4 mg/dL (0.2-1.2) 08/23/19 16:02 AST 14 U/L (5-34) 08/23/19 16:02 ALT 14 U/L (8-55) 08/23/19 16:02 Alkaline Phosphatase 55 U/L (40-110) 08/23/19 16:02 Creatine Kinase 24 U/L (29-168) L 08/23/19 16:02 CK-MB (CK-2) 1.2 ng/mL (0-6.6) 08/23/19 16:02 Troponin I 0.039 ng/mL (< 0.028) H 08/23/19 16:02 Serum Total Protein 5.4 g/dL (6.0-8.3) L 08/23/19 16:02 Albumin 3.4 g/dL (3.4-4.8) 08/23/19 16:02 - Radiology Interpretation Chest x-ray Status: report reviewed by mt Hospitalist H&P A/P - Problem (1) Anemia Code(s): D64.9 - ANEMIA, UNSPECIFIED Status: Acute (2) CKD (chronic kidney disease) Code(s): N18.9 - CHRONIC KIDNEY DISEASE, UNSPECIFIED Status: Acute (3) Dementia Code(s): F03.90 - UNSPECIFIED DEMENTIA WITHOUT BEHAVIORAL DISTURBANCE Status: Chronic (4) Chest pain Code(s): R07.9 - CHEST PAIN, UNSPECIFIED Status: Chronic (5) Anxiety and depression Code(s): F41.8 - OTHER SPECIFIED ANXIETY DISORDERS Status: Chronic (6) Dyslipidemia Code(s): E78.5 - HYPERLIPIDEMIA, UNSPECIFIED Status: Chronic (7) Hypertension Code(s): I10 - ESSENTIAL (PRIMARY) HYPERTENSION Status: Chronic Qualifiers: Hypertension type: essential hypertension Qualified Code(s): I10 - Essential (primary) hypertension (8) Hypothyroidism Code(s): E03.9 - HYPOTHYROIDISM, UNSPECIFIED Status: Chronic - Plan Plan: Continue to trend troponins. Cardiac monitoring. Add-on BNP to labs as well as Mg+ Awaiting stool testing for occult blood results, done in ED 2 units PRBCs ordered by Dr. Robles. Protonix IV daily. Continue to monitor H/H. Iron studies. Given mention of possible seizure, will add prolactin. Obtain UA/Ucx. Monitor BP. Reconcile home medications as appropriate. Known CKD, slightly worse from baseline. Nephrology consult requested (Her Compugraph Operator is Dr. Jasso). CODE STATUS FULL Surrogate Decision maker: Ochoa Morris
[2019-08-23 19:38] LABS: Troponin I 0.044 ng/mL (< 0.028)
[2019-08-23 20:26] LABS: Iron Binding Capacity, Total 306 mcg/dL (265-497)
[2019-08-23 20:27] LABS: Iron 193 ug/dL (50-170)
[2019-08-23 21:00] LABS: Ferritin 47.93 ng/mL (10-291)
[2019-08-23] MEDS: Sodium Chloride 0.9% 1,000 ML IV SCH (21:23)
[2019-08-23 22:32] LABS: Hemoglobin 5.8 g/dL (12.0-16.0)
[2019-08-23 22:44] LABS: Troponin I 0.043 ng/mL (< 0.028)
[2019-08-24] MEDS ORDERED: NIFEdipine XL 60 MG TAB PO SCH (02:00)
[2019-08-24] MEDS: Levothyroxine Sodium 88 MCG TAB PO SCH (05:27)
[2019-08-24] MEDS ORDERED: Furosemide 40 MG/4 ML VIAL SLOW IVP SCH (05:45)
[2019-08-24] MEDS ORDERED: hydrALAZINE 20 MG/ML VIAL SLOW IVP SCH (06:30)
[2019-08-24 06:47] LABS: #Eosinphils 0.2 thou/uL (0.0-0.7); #Lymphocytes 1.5 thou/uL (1.20-3.40); #Monocytes 0.6 thou/uL (0.11-0.59); #Neutrophils 5.3 thou/uL (1.40-6.50); %Basophils 0.6 % (0.0-1.0); %Eosinophils 2.1 % (0.0-10.0); %Lymphocytes 19.7 % (21.0-51.0); %Monocytes 7.8 % (0.0-10.0); %Neutrophils 69.8 % (42.0-75.0); Hemoglobin 8.9 g/dL (12.0-16.0); Mean Corpuscular HGB CONC 34.8 g/dL (32.0-36.0); Mean Corpuscular Hemoglobin 30.6 pg (27.0-31.0); Mean Corpuscular Volume 87.9 fL (78.0-98.0); Platelet Count 82 thou/uL (130-400); RBC Distribution Width 13.3 % (11.5-14.5); Red Blood Cell (RBC) Count 2.91 mill/uL (4.20-5.40); White Blood Cell (WBC) Count 7.6 thou/uL (4.8-10.8)
[2019-08-24 07:14] LABS: ALT (SGPT) 14 U/L (8-55); AST (SGOT) 18 U/L (5-34); Albumin 3.5 g/dL (3.4-4.8); Alkaline Phosphatase 59 U/L (40-110); Anion Gap 15 mmol/L (10-20); BUN (Urea Nitrogen) 118 mg/dL (9.8-20.1); Bilirubin, Total 0.8 mg/dL (0.2-1.2); Calc. Creatinine Clearance 16 mL/min (70-130); Calcium 8.5 mg/dL (7.8-10.44); Carbon Dioxide 18 mmol/L (23-31); Chloride 111 mmol/L (98-107); Estimated GFR-MDRD 24; Glucose 103 mg/dL (83-110); Potassium 4.6 mmol/L (3.5-5.1); Protein, Total 5.5 g/dL (6.0-8.3); Sodium 139 mmol/L (136-145)
[2019-08-24] MEDS: Donepezil HCl 10 MG TAB PO SCH (09:22)
[2019-08-24] MEDS: NIFEdipine XL 60 MG TAB PO SCH ×2 (09:22→20:21)
[2019-08-24] MEDS: Isosorbide Mononitrate (ER) 30 MG TAB PO SCH (09:22)
[2019-08-24] MEDS: Pantoprazole 40 MG VIAL IVP SCH (09:23)
[2019-08-24 14:36] LABS: Hemoglobin 8.6 g/dL (12.0-16.0)
[2019-08-24] MEDS: Sodium Chloride 0.9% 1,000 ML IV SCH (17:16)
--- NOTE | 2019-08-24 19:23 | PDOC.HOSPP ---
- Subjective Encounter Date: 08/24/19 Subjective: Feels better today but has no recollection of the events from yesterday. - Objective Vital Signs & Weight: Vital Signs (12 hours) Temp Pulse Resp BP Pulse Ox 08/24/19 16:52 97.7 F 76 12 147/71 H 100 08/24/19 11:55 98.2 F 76 12 141/68 H 97 08/24/19 10:10 154/68 H 08/24/19 07:35 97.8 F 81 12 166/70 H 98 Weight Weight 104 lb 9 oz I&O: 08/23/19 08/24/19 08/25/19 06:59 06:59 06:59 Intake Total 0 720 Output Total 850 Balance 0 -130 Result Diagrams: 08/24/19 14:27 08/24/19 06:39 Hospitalist ROS - Medication Medications: Active Medications Generic Name Dose Route Start Last Admin Trade Name Freq PRN Reason Stop Dose Admin Donepezil HCl 10 mg 08/24/19 09:00 08/24/19 09:22 Aricept PO 10 mg QAM MARILYNN Administration Sodium Chloride 1,000 mls @ 50 mls/hr 08/23/19 18:45 08/24/19 17:16 Normal Saline 0.9% IV Not Given .Q20H MARILYNN Isosorbide Mononitrate 30 mg 08/24/19 09:00 08/24/19 09:22 Imdur Er PO 30 mg QAM MARILYNN Administration Levothyroxine Sodium 88 mcg 08/24/19 06:00 08/24/19 05:27 Synthroid PO 88 mcg 0600 MARILYNN Administration Metoprolol Succinate 50 mg 08/24/19 09:00 08/24/19 09:22 Toprol Xl PO 50 mg BID MARILYNN Administration Nifedipine 60 mg 08/24/19 09:00 08/24/19 09:22 Procardia Xl PO 60 mg BID MARILYNN Administration Pantoprazole Sodium 40 mg 08/24/19 09:00 08/24/19 09:23 Protonix IVP 40 mg DAILY MARILYNN Administration Sertraline HCl 100 mg 08/24/19 09:00 08/24/19 09:22 Zoloft PO 100 mg DAILY MARILYNN Administration Sodium Chloride 10 ml 08/23/19 21:00 08/24/19 09:23 Flush - Normal Saline IVF 10 ml Q12HR MARILYNN Administration Vitamin E 1,000 units 08/24/19 09:00 08/24/19 10:04 Vitamin E PO 1,000 units DAILY MARILYNN Administration - Exam General Appearance: awake alert ENT: normocephalic atraumatic Neck: supple Heart: RRR Respiratory: CTAB Gastrointestinal: soft, non-tender, non-distended, normal bowel sounds Hosp A/P (1) Anemia Code(s): D64.9 - ANEMIA, UNSPECIFIED Status: Acute (2) CKD (chronic kidney disease) Code(s): N18.9 - CHRONIC KIDNEY DISEASE, UNSPECIFIED Status: Acute (3) Dementia Code(s): F03.90 - UNSPECIFIED DEMENTIA WITHOUT BEHAVIORAL DISTURBANCE Status: Chronic (4) Chest pain Code(s): R07.9 - CHEST PAIN, UNSPECIFIED Status: Chronic (5) Hypertension Code(s): I10 - ESSENTIAL (PRIMARY) HYPERTENSION Status: Chronic Qualifiers: Hypertension type: essential hypertension Qualified Code(s): I10 - Essential (primary) hypertension - Plan H&H improved after transfusion. Iron studies unremarkable but she is on iron. She is chest pain free now after her anemia improved. Troponins not rending up. Likely demand ischemia associated with anemia. FOBT ordered. Continue medical management.
--- NOTE | 2019-08-24 21:13 | CON ---
DATE OF CONSULTATION: 08/24/2019 CONSULTING PHYSICIAN: ILYA Le. REASON FOR CONSULT: Acute kidney injury. REASON FOR ADMISSION: Seizure. HISTORY OF PRESENT ILLNESS: An 84-year-old female with history of dementia, anemia, hypertension who came to the hospital with the above complaint, but was found to have elevated creatinine. Nephrology was consulted. The patient is unable to give a good history. No fever or chills. No nausea or vomiting reported to me. PAST MEDICAL HISTORY: Positive for dementia, anxiety, depression, hypothyroidism, hypertension, AFib, hyperlipidemia. PAST SURGICAL HISTORY: Appendectomy, mastectomy. HOME MEDICATIONS: Reviewed. ALLERGIES: AMOXICILLIN, ATORVASTATIN, POTASSIUM CLAVULANATE, AND SIMVASTATIN. SOCIAL HISTORY: Former smoker. No smoking, alcohol, or illicit drug use. FAMILY HISTORY: No history of kidney disease. REVIEW OF SYSTEMS: The following complete review of systems was negative, unless otherwise mentioned in the HPI or below: CONSTITUTIONAL: Weight loss or gain, ability to conduct usual activities. SKIN: Rash, itching. EYES: Double vision, pain. ENT/MOUTH: Nose bleeding, neck stiffness, pain, tenderness. CARDIOVASCULAR: Palpitations, dyspnea on exertion, orthopnea. RESPIRATORY: Shortness of breath, wheezing, cough, hemoptysis, fever or night sweats. GASTROINTESTINAL: Poor appetite, abdominal pain, heartburn, nausea, vomiting, constipation, or diarrhea. GENITOURINARY: Urgency, frequency, dysuria, nocturia. MUSCULOSKELETAL: Pain, swelling. NEUROLOGIC/PSYCHIATRIC: Anxiety, depression. ALLERGY/IMMUNOLOGIC: Skin rash, bleeding tendency. PHYSICAL EXAMINATION: GENERAL: This is a well-developed female in no apparent distress. VITAL SIGNS: Temperature 98.2, pulse 76, respiratory rate , blood pressure 141/60. HEENT: Atraumatic, normocephalic. NECK: Supple. CV: S1, S2. Rate and rhythm regular. RESPIRATORY: Clear. MUSCULOSKELETAL: 1+ edema. DERMATOLOGIC: No skin rash. NEUROLOGIC: Alert and awake. PSYCHIATRIC: Mood and affect normal. LABORATORY DATA: Hemoglobin is 8.6. Potassium 4.6, BUN is 118, creatinine is 2.08. ASSESSMENT AND PLAN: 1. Acute kidney injury. Continue hydration. Avoid nephrotoxins. Creatinine is slightly better. 2. Azotemia. 3. Anemia, better. 4. Hypoalbuminemia, mild. 5. Edema, controlled. 6. Hypertension. 7. Acidosis. Continue IV fluids. Monitor labs. Avoid nephrotoxins. Continue supportive care. We will follow. Job ID: [id number]
[2019-08-25 05:13] LABS: Band 1 % (5-11); Eosinophils 1 % (0-10); Hemoglobin 8.5 g/dL (12.0-16.0); Hypochromia SLIGHT = 6-15 cells (100X) (0-5/hpf); Lymphocytes 15 % (21-51); MDiff Complete? YES; Mean Corpuscular Hemoglobin 31.1 pg (27.0-31.0); Neutrophil 83 % (42-75); Platelet Count 95 thou/uL (130-400); Platelet Morphology Comment Appears Adequate; RBC Distribution Width 13.9 % (11.5-14.5); Red Blood Cell (RBC) Count 2.72 mill/uL (4.20-5.40); White Blood Cell (WBC) Count 4.9 thou/uL (4.8-10.8)
[2019-08-25 05:21] LABS: Anion Gap 11 mmol/L (10-20); BUN (Urea Nitrogen) 96 mg/dL (9.8-20.1); Calc. Creatinine Clearance 17 mL/min (70-130); Calcium 8.7 mg/dL (7.8-10.44); Carbon Dioxide 21 mmol/L (23-31); Chloride 113 mmol/L (98-107); Estimated GFR-MDRD 25; Glucose 87 mg/dL (83-110); Potassium 4.3 mmol/L (3.5-5.1); Sodium 141 mmol/L (136-145)
[2019-08-25] MEDS: Levothyroxine Sodium 88 MCG TAB PO SCH ×2 (05:37→05:40)
[2019-08-25] MEDS: Donepezil HCl 10 MG TAB PO SCH (08:38)
[2019-08-25] MEDS: NIFEdipine XL 60 MG TAB PO SCH (08:38)
[2019-08-25] MEDS: Isosorbide Mononitrate (ER) 30 MG TAB PO SCH (08:38)
[2019-08-25] MEDS: Pantoprazole 40 MG VIAL IVP SCH (08:39)
[2019-08-25] MEDS ORDERED: Aspirin 81 mg Enteric Coated Tablet PO SCH (09:00)
--- NOTE | 2019-08-25 10:11 | PRG ---
DATE OF SERVICE: 08/25/2019 SUBJECTIVE: An 84-year-old female, being seen for acute kidney injury. The patient denied any nausea, vomiting, or chest pain. PHYSICAL EXAMINATION: General: The patient is awake and alert. Vital Signs: Afebrile, pulse 69, breathing at 16, blood pressure 169/83. HEENT: Head normocephalic and atraumatic. Eyes intact, no ulcers. Nose intact, no ulcers. Ears intact, no ulcers. Neck: Supple. No JVD. Chest: Symmetrical and clear. Cardiovascular: Shows S1 and S2, no rub, no murmur. Gastrointestinal: Abdomen is soft, bowel sounds positive. Extremities: Show no edema or ulcers. Skin: Shows no rash or petechiae. Musculoskeletal: Shows no joint swelling or stiffness. Genitourinary: Shows no Camacho or CVA tenderness. Neurologic: Motor intact. Cranial nerves intact. LABORATORY DATA: Reviewed. ASSESSMENT AND PLAN: 1. Chronic kidney disease stage 3, stable. 2. Acute kidney injury, stable. 3. Hypertension with anemia, stable. 4. Medications based on GFR appropriate. Job ID: [id number]
[2019-08-25] MEDS: Sodium Chloride 0.9% 1,000 ML IV SCH (11:33)
[2019-08-25 13:19] VITALS: BP 116/58; TEMP 97.7
[2019-08-25 13:23] VITALS: BMI 18.3
--- NOTE | 2019-08-26 05:50 | DIS ---
DATE OF ADMISSION: 08/23/2019 DATE OF DISCHARGE: 08/25/2019 DISCHARGE DIAGNOSES: 1. [id number] anemia. 2. Chronic kidney disease with superimposed acute kidney injury. 3. Dementia. 4. Chest pain. 5. Hypertension. DISCHARGE MEDICATIONS: 1. Pantoprazole 40 mg orally daily. 2. Aspirin 81 mg orally daily. 3. Donepezil 10 mg orally daily. 4. Imdur 30 mg orally daily. 5. Levothyroxine 88 mcg orally daily. 6. Metoprolol 50 mg orally twice daily. 7. Nifedipine 60 mg orally twice daily. 8. Seroquel 50 mg orally nightly. 9. Sertraline 100 mg orally daily. 10. Iron 65 mg orally daily. 11. Coreg 75 mg orally daily. 12. Nitroglycerin 0.4 mg orally as needed for chest pain. 13. Rosuvastatin 20 mg orally nightly. HISTORY OF PRESENT ILLNESS AND HOSPITAL COURSE: The patient is an 84-year-old female with past medical history of dementia, breast cancer, anxiety, depression, hypothyroidism, hypertension, atrial fibrillation, hyperlipidemia, and mastectomy, who was brought to the hospital after a syncopal episode. In the ER, she was confused and was complaining of chest pain. Her blood pressure was uncontrolled and laboratory studies revealed hemoglobin level of 5.8 and slightly elevated troponin of 0.4. She was admitted to the hospital, and serial troponins were obtained, and the troponin level has remained unchanged. Creatinine level was noted to be above baseline as well. She received 2 units of packed RBCs, which led to improvement of her hemoglobin level to 8.5. This has led to resolution of her symptoms. On the day of discharge, the patient was back to her baseline. Her creatinine level improved to 1.9, which is close to her baseline. Her symptoms were likely due to demand ischemia, symptomatic anemia. Her iron studies were unremarkable, but the patient was taking iron tablets. No evidence of bleeding was noted. We will prescribe Protonix and arrange for outpatient followup with GI. Job ID: [id number]
--- NOTE | 2019-08-27 11:03 | PQF ---
RICARDO RAGSDALE [place] UMM LIM [id number] [facility]256 [id number] CLINICAL DOCUMENTATION CLARIFICATION FORM: POST DISCHARGE Addendum to original discharge summary date: ____ Late entry note date: __ DATE: 08/27/2019 ATTN:UMM LIM Please exercise your independent, professional judgment in responding to the clarification form. Clinical indicators are provided on the bottom of this form for your review Please check appropriate box(s): AMI TYPE: [ ] Acute Coronary Syndrome (ACS) without Acute WI meaning Unstable Angina [ ] NSTEMI (WI type I) [ ] NSTEMI due to Demand Ischemia (AMI Type II) [ > ] Demand Ischemia without WI [ ] STEMI (please also specify site and arterysee below) If STEMI, SITE: [ ] Anterior [ ] Apical [ ] Lateral [ ] Inferior [ ] Posterior [ ] Q Wave [ ] Septal [ ] Unable to Determine SPECIFIC ARTERY (Based on site) [ ] Left Main Coronary[ ] Diagonal [ ] Left Anterior Descending[ ] Oblique Marginal [ ] Right Coronary Artery[ ] Unable to Determine [ ] Left Circumflex ONSET OF INFARCTION: [ ] Onset Less than 4 weeks of admission [ ] Onset Greater than 4 weeks of admission [ ] Unable to determine DUE TO (if applicable): [ ] Stent occlusion [ ] In-Stent stenosis [ ] Occlusion of coronary bypass graft [ ] Complication of PCI [ ] Underlying CAD [ ] Other [ ] Other diagnosis [ ] Unable to determine CLINICAL INDICATORS - SIGNS / SYMPTOMS / LABS - Her symptoms were likely due to demand ischemia, symptomatic anemia- DS, 08/25 , Umm Lim MD - Slightly elevated troponin of 0.4- DS, 08/25, Umm Lim MD - Chest pain-DS, 08/25, Umm Lim MD - Blood pressure was uncontrolled-DS, 08/25, Umm Lim MD - recently after a syncopal episode/fall with acute encephalopathy due to uncontrolled HTN, worsening dementia, anemia and type 2 NSTEMI- H&P, 08/22, Janis Shabazz - Troponin: 0.039H, 0.044H, 0.043H- Laboratory, 08/22 RISKS: - PMH: Atrial fibrillation- ED record, 08/22, Travis White DO - PSH: Mastectomy- Consultation report, 08/23, Janis Shabazz TREATMENTS: - Aspirin.PO-DS, 08/25, Umm Lim MD (This form is maintained as a part of the permanent medical record) 2014 [employer] All Rights Reserved [email or web address]
--- NOTE | 2019-09-04 16:11 | EKG ---
Test Reason : Blood Pressure : / mmHG Vent. Rate : 070 BPM Atrial Rate : 070 BPM P-R Int : 190 ms QRS Dur : 082 ms QT Int : 452 ms P-R-T Axes : 055 007 141 degrees QTc Int : 488 ms Normal sinus rhythm Left ventricular hypertrophy with repolarization abnormality Abnormal ECG Confirmed by BRENNA LUO ([id number]), assistant film editor ZACHARY JULIO ([id number]) on 09/04/2019 4:10:50 PM Referred By: Confirmed By:BRENNA LUO
== END 2019-08-25 16:15 | disposition home or self-care (01) | DRG 812 ==
LOC: ERS 15:20 → 2NO 18:14
PROVIDERS: ADMIT Internal Medicine; ATTEND Internal Medicine
PROC: 30233N1 Transfusion of Nonautologous Red Blood Cells into Peripheral Vein, Percutaneous Approach (ICD-10-PCS; principal; 2019-08-23)
DX: D64.9 Anemia, unspecified (principal); N17.9 Acute kidney failure, unspecified; I24.8 Other forms of acute ischemic heart disease; E87.2 Acidosis; I12.9 Hypertensive chronic kidney disease with stage 1 through stage 4 chronic kidney disease, or unspecified chronic kidney disease; F03.90 Unspecified dementia, unspecified severity, without behavioral disturbance, psychotic disturbance, mood disturbance, and anxiety; F41.9 Anxiety disorder, unspecified; C50.919 Malignant neoplasm of unspecified site of unspecified female breast; F32.9 Major depressive disorder, single episode, unspecified; E03.9 Hypothyroidism, unspecified; E78.5 Hyperlipidemia, unspecified; N18.3 Chronic kidney disease, stage 3 (moderate); I48.91 Unspecified atrial fibrillation; Z79.01 Long term (current) use of anticoagulants; Z90.12 Acquired absence of left breast and nipple; Z85.3 Personal history of malignant neoplasm of breast; Z87.891 Personal history of nicotine dependence; Z88.1 Allergy status to other antibiotic agents; Z88.8 Allergy status to other drugs, medicaments and biological substances
CPT/HCPCS: 36415; 36430; 71045; 80048; 80053; 82550; 82553; 82607; 82728; 82746; 83540; 83550; 83605; 83735; 83880; 84146; 84484; 85007; 85025; 85027; 85610; 85730; 86850; 86900; 86901; 93005; 94760; C9113; J0360; P9016

== ENCOUNTER 2019-10-10 22:51 | Emergency (ER) | payer MEDICARE, BC ==
[2019-10-10] MEDS ORDERED: Lidocaine 1% w/Epinephrine 1:100K 20 ML VIAL ONE (23:34)
--- NOTE | 2019-10-11 07:34 | CT ---
CT BRAIN: Date: 10/10/2019 HISTORY: Head injury. COMPARISON: 08/06/2019. FINDINGS: The ventricular system appears normal in size and morphology. There is no evidence for intracranial h emorrhage or mass effect. Chronic microvascular ischemic changes are again seen. There is left suprao rbital scalp swelling. There is no evidence for skull fracture. IMPRESSION: No evidence for intracranial hemorrhage or skull fracture. POS: TOOTIE
--- NOTE | 2019-10-11 07:35 | CT ---
CT CERVICAL SPINE: Date: 10/10/2019 PROVIDED CLINICAL HISTORY: Fall. FINDINGS: No evidence for fracture or traumatic subluxation. Advanced multilevel cervical degenerative changes are seen with degenerative anterolisthesis of C4 on C5. No prevertebral soft tissue swelling apparent . The visualized lung apices appear clear. Vascular calcifications are seen. IMPRESSION: No evidence for fracture or traumatic subluxation. POS: TOOTIE
--- NOTE | 2019-10-11 15:17 | EKG ---
Test Reason : EMERGENCY Blood Pressure : / mmHG Vent. Rate : 066 BPM Atrial Rate : 066 BPM P-R Int : 158 ms QRS Dur : 080 ms QT Int : 438 ms P-R-T Axes : 053 -01 110 degrees QTc Int : 459 ms Normal sinus rhythm Nonspecific ST and T wave abnormality Abnormal ECG Confirmed by CAITLIN YEN M.D. ([id number]), video effects editor CARLOS CAVAZOS ([id number]) on 10/11/2019 3:17:00 PM Referred By: Confirmed By:CAITLIN YEN M.D.
== END 2019-10-11 01:14 ==
LOC: ERS 22:51
DX: S01.81XA Laceration without foreign body of other part of head, initial encounter (principal); I48.91 Unspecified atrial fibrillation; E03.9 Hypothyroidism, unspecified; E78.5 Hyperlipidemia, unspecified; F41.9 Anxiety disorder, unspecified; Z87.891 Personal history of nicotine dependence; W18.30XA Fall on same level, unspecified, initial encounter
CPT/HCPCS: 12013; 36415; 70450; 72125; 82728; 83540; 83550; 93005

== ENCOUNTER 2019-10-22 14:28 | Outpatient (CLI) | payer MEDICARE, BC ==
--- NOTE | 2019-10-22 15:13 | ULT ---
Exam: Bilateral renal ultrasound HISTORY: Chronic kidney disease COMPARISON: None FINDINGS: Right kidney: Normal cortex echotexture. No hydronephrosis. Large anechoic focus emanating from the l ower pole of the right kidney measures 9.3 x 9.4 x 10.2 cm and likely represents a large exophytic cyst. Smaller cortical cysts are identified. Right kidney measurements: 8.5 x 5.1 x 4.9 cm. Left kidney: Normal cortex echotexture. No hydronephrosis. Multiple cysts are noted throughout the le ft renal cortex. Largest cyst measures 2.2 x 2.3 x 2.2 cm and is located near the lower pole. Left kidney measurements 9.8 x 5.0 x 5.1 cm. Urinary bladder: Normal mucosa. 48 mL bladder volume. Bilateral ureteral jets are identified. IMPRESSION: 1. Bilateral renal cortical cysts. 2. No hydronephrosis.
== END 2019-10-22 14:29 | disposition home or self-care (01) ==
LOC: BICULT 14:28
PROVIDERS: ATTEND Internal Medicine Nephrology
DX: N18.4 Chronic kidney disease, stage 4 (severe) (principal); N28.1 Cyst of kidney, acquired
CPT/HCPCS: 76770

== ENCOUNTER 2020-04-07 16:10 | Emergency (ER) | payer MEDICARE, BC ==
[2020-04-07 17:10] LABS: Bacteria/HPF None Seen HPF (None Seen); Bilirubin Negative (Negative); Blood, Urine Negative (Negative); Clarity Clear (Clear); Glucose, Urine (Dipstick) Normal (Negative); Ketone, Urine Negative (Negative); Leukocyte Negative Leu/uL (Negative); Nitrite Negative (Negative); Protein, Urine (Dipstick) 100 mg/dL (Neg-Trace); Specific Gravity, Urine 1.015 (1.002-1.036); Squamous Epithelial 0-3 HPF (0-3); Urobilinogen Normal mg/dL (Less than 2); WBC/HPF 0-3 HPF (0-3); pH, Urine 5.5 (5.0-9.0)
--- NOTE | 2020-04-10 15:23 | EKG ---
Test Reason : Blood Pressure : / mmHG Vent. Rate : 098 BPM Atrial Rate : 098 BPM P-R Int : 190 ms QRS Dur : 088 ms QT Int : 384 ms P-R-T Axes : 058 -03 153 degrees QTc Int : 490 ms Normal sinus rhythm Left ventricular hypertrophy with repolarization abnormality Prolonged QT Abnormal ECG Confirmed by BHAVIN MOREL, BETY ([id number]), associate editor CARLOS CAVAZOS ([id number]) on 04/10/2020 3:22:40 PM Referred By: Confirmed By:BETY DELCID MD
== END 2020-04-07 19:01 | disposition home or self-care (01) ==
LOC: ERS 16:10
DX: R55 Syncope and collapse (principal); E03.9 Hypothyroidism, unspecified; E78.5 Hyperlipidemia, unspecified; I10 Essential (primary) hypertension; I48.91 Unspecified atrial fibrillation; Z87.891 Personal history of nicotine dependence
CPT/HCPCS: 51701; 81003; 81015; 93005